=== PATIENT | female | born 2000 | race Caucasian/White ===

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

== ENCOUNTER 2022-02-24 11:31 | Emergency (ER) | payer BC, SELFPAY ==
[2022-02-24 11:56] VITALS: BP 123/67; PULSE 128; RESP 18; TEMP 37.3; O2SAT 100
--- NOTE | 2022-02-24 12:23 | ED.URI ---
HPI - URI/Sore Throat General Chief Complaint: Upper Respiratory Infection Stated Complaint: headache,sorethroat,nasal congestion Time Seen by Provider: 02/24/22 11:56 Source: patient, RN notes reviewed and old records reviewed Mode of arrival: ambulatory Limitations: no limitations History of Present Illness HPI Narrative: 21 year old female who presents to [facility] care with complaints of 10 day history of sore throat, sinus congestion and drainage, headache, sinus pressure and feeling like her glands are swollen in her neck. She reports that she has had intermittent fevers with her temperature 102.2F this morning and she took Advil prior to arrival, temperature at triage 99.2T. Patient reports that she does have a lot of phlegm in the morning and she has actually thrown up the mucous when she brushes her teeth. Home COVID test taken yesterday and was negative. MD elicited complaint: fever, cough, sore throat, rhinorrhea, nasal congestion and sinus pain Onset (ago): day(s) (10) Pain scale (0-10): 5 Treatments prior to arrival: ibuprofen and cold medicine Related Data Allergies Allergy/AdvReac Type Severity Reaction Status Date / Time No Known Allergies Allergy Verified 02/24/22 11:55 Review of Systems Review of Systems: CONSTITUTIONAL: Positive for fever, chills, or sweats. EYES: Denies visual changes, redness, or discharge. ENT: Positive for rhinorrhea, congestion, sore throat, no otalgia. CARDIOVASCULAR: Denies chest pain, palpitations, or edema. RESPIRATORY: Positive for cough denies dyspnea. GASTROINTESTINAL: Denies abdominal pain, nausea, positive for episodes of vomiting, no diarrhea. GENITOURINARY: Denies dysuria or hematuria. SKIN: Denies rash or itching. MUSCULOSKELETAL: Denies back pain, joint pain, or myalgia. NEUROLOGIC: Positive for headache, no numbness, or weakness. PSYCHIATRIC: Denies anxiety or depression. All systems reviewed & are unremarkable except as noted in HPI and below PMFSH Past Medical History Medical History (Updated 02/26/22 @ 20:48 by Antonina Chung NP) No significant past medical history Surgical History Surgical History (Updated 02/26/22 @ 20:51 by Antonina Chung NP) No history of previous surgery Social History Social History (Updated 09/02/22 @ 12:22 by Antonina Chung NP) Smoking status: Never smoker Alcohol intake: current Alcohol use details: social Substance use type: does not use Living arrangements: with family Gender identity (if verbalized by the patient): Female Comments At time of signature, agree with nursing past medical, surgical, social and family history. There is no relevant family history pertinent to the presenting complaint Exam Narrative: GENERAL: Ill-appearing, well-nourished, and in no acute distress. HEAD: Normocephalic, atraumatic. EYES: PERRLA and EOMI. ENT: Nares red with clear thick rhinorrhea no epistaxis. Mucous membranes moist.TM's with good light reflex, throat red with no lesions or exudate or tonsil swelling, post nasal drainage noted NECK: Supple.no lymphadenopathy CHEST: scattered wheezing on auscultation. No respiratory distress.SAO2 100% on r HEART: Regular rate and rhythm. No murmur heard. Normal peripheral pulses. ABDOMEN: Soft, nontender, nondistended, normal active bowel sounds. EXTREMITIES: Normal range of motion. No edema. SKIN: Warm, dry, no rash. NEURO: No focal deficits. Alert and oriented x3. Course Course Level of Care: Express Care Visit Vital Signs Vital signs: Vital Signs Temperature 37.3 C 02/24/22 11:56 Pulse Rate 128 H 02/24/22 11:56 Respiratory Rate 18 02/24/22 11:56 Blood Pressure 123/67 02/24/22 11:56 Pulse Oximetry 100 02/24/22 11:56 Oxygen Delivery Room Air 02/24/22 11:56 Temperature 37.3 C 02/24/22 11:56 Pulse Rate 115 H 02/24/22 12:43 Respiratory Rate 16 02/24/22 12:43 Blood Pressure 123/67 02/24/22 11:56 Pulse Oximetry 100 02/24/22 12:43 Oxyge
[2022-02-24 12:43] VITALS: PULSE 115; RESP 16; O2SAT 100
== END 2022-02-24 12:45 | disposition home or self-care (01) ==
PROVIDERS: Emergency Provider Registered Nurse; PCP Nurse Practitioner Family
DX: J32.9 Chronic sinusitis, unspecified (principal); J40 Bronchitis, not specified as acute or chronic
CPT/HCPCS: 87081; 87880; 99213; G0463

== ENCOUNTER 2022-09-21 14:27 | Outpatient (RCR) | payer BC, MEDICAID, SELFPAY ==
[2022-09-21 16:46] VITALS: BP 109/69; PULSE 112
== END 2022-11-24 17:44 | disposition home or self-care (01) ==
LOC: ANHOBOP 14:27
PROVIDERS: PCP Nurse Practitioner Family; Visit Provider Obstetrics & Gynecology
DX: O36.8130 Decreased fetal movements, third trimester, not applicable or unspecified (principal); Z3A.29 29 weeks gestation of pregnancy
CPT/HCPCS: 59025

== ENCOUNTER 2022-11-06 18:00 | Observation (INO) | payer BC, MEDICAID, SELFPAY ==
[2022-11-06] VITALS (62 sets, daily range): BP systolic 109–134; BP diastolic 65–96; PULSE 51–145; O2SAT 78–100
--- NOTE | 2022-11-06 15:30 | PC.NURSE ---
PT was sent from office for PIH evaluation. pt states she had headaches and blurred vision. EFM applied.
[2022-11-06 16:41] LABS: Basophils Percent Auto 0.2 % (0.2-1.2); Eosinophils Absolute Auto 0.1 K/mm3 (0-0.3); Eosinophils Percent Auto 0.8 % (0-4.4); Hematocrit 35.9 % (37.0-47.0); Hemoglobin 11.9 g/dL (12.0-15.0); Immature Granulocyte Absolute 0.05 K/mm3 (0.00-0.031); Immature Granulocyte Percent A 0.6 % (0-0.5); Immature Platelet Fraction Pct 17.5 % (0.9-11.2); Lymphocytes Absolute Auto 1.77 K/mm3 (0.9-3.2); Lymphocytes Percent Auto 19.6 % (18.3-44.2); Mean Corpuscular HGB Conc 33.1 g/dl (32-36); Mean Corpuscular Hemoglobin 28.1 pg (26-34); Mean Corpuscular Volume 84.7 fl (80-100); Mean Platelet Volume 12.8 fl (7.4-10.4); Monocytes Absolute Auto 0.6 K/mm3 (0.1-0.6); Monocytes Percent Auto 6.3 % (2.6-8.5); Neutrophils Absolute Auto 6.5 K/mm3 (1.3-6.7); Neutrophils Percent Auto 72.5 % (45.5-73.1); Platelet Count Result 135 k/mm3 (150-375); Red Blood Count 4.24 M/mm3 (4.2-5.4); Red Cell Distribution Width 16.4 % (11.5-14.5)
[2022-11-06 17:01] LABS: Alanine Aminotransferase 23 U/L (6-35); Albumin Level 3.5 g/dL (3.5-5.1); Alkaline Phosphatase 178 U/L (38-126); Anion Gap 7 mmol/L (8-16); Aspartate Amino Transferase 31 U/L (14-36); Bilirubin,Total 0.3 mg/dL (0.2-1.3); Blood Urea Nitrogen 8 mg/dL (7-17); Calcium 8.8 mg/dL (8.4-10.2); Carbon Dioxide 22 mmol/L (22-30); Chloride 105 mmol/L (98-107); Estimated Glomerular Filt Rate > 60; Glucose 76 mg/dL (65-110); Potassium 3.7 mmol/L (3.4-5.0); Sodium 134 mmol/L (137-145); Uric Acid 5.1 mg/dL (2.5-7.5)
[2022-11-06 17:27] LABS: Bacteria Urine 4+ /hpf; Need Manual Microscopic Reviewed; Non Pathogenic Casts 0-2; RBC Urine 0-2 /hpf (0-2); Squamous Epithelial Cell Urine Moderate /hpf (Few); WBC Urine 21-50 /hpf (0-3)
[2022-11-06 17:40] LABS: Appearance Urine Slightly Cloudy (Clear); Bilirubin Urine Negative (Negative); Blood Urine Negative (Negative); Color Urine Yellow (Yellow); Glucose Urine UA Negative (Negative); Ketones Urine Negative (Negative); Leukocyte Esterase Ur Negative LEU/UL (NEGATIVE); Nitrate Urine Negative (Negative); Protein Urine Negative (Negative); Specific Grav Ur 1.015 (1.001-1.035); Urobilinogen Urine 0.2 mg/dL (<2.0); pH Urine 7.5 (5.0-9.0)
[2022-11-06 17:41] LABS: Add Urine Microscopic? YES
--- NOTE | 2022-11-06 17:45 | PC.NURSE ---
called Dr. Campuzano and reported PIH lab result and BP. also made aware of contractions and SVE was finger tip. terbutaline order received. discharge to home if contractions subsided.
[2022-11-06] MEDS: TERBUTALINE SULFATE 1 MG/ML VIAL 0.25 MG SUB-Q ×2 (18:00→21:27)
[2022-11-06 18:58] LABS: Creatinine Urine 61.6 mg/dL; Total Protein Urine Random 16 mg/dL; Ur Ttl Prot Creatinine Ratio 0.26 mg/mg (0-0.20)
[2022-11-06] MEDS: NIFEdipine 10 MG CAPSULE PO (19:27)
[2022-11-06] MEDS: NIFEdipine 30 MG TAB.ER.24 PO ×2 (19:27→21:27)
[2022-11-06] MEDS: BETAMETHASONE SOD PHOS/ACETATE 30 MG/5 ML VIAL 12 MG IM (21:27)
--- NOTE | 2022-11-06 22:20 | OBADM ---
This patient, Zaina Oswald, admitted to the OB room OB Post 117 for observation. Patient/family oriented to hospital policies and general routines including ID bracelet, bed and alarms, visiting hours, pain management, procedures, bathroom and other care routines, personal items, smoking policy, room service/diet, and visiting hours. Patient/Family are encouraged to report perceived risks to care and to ask questions if they do not understand what they are told or what they should do.
--- NOTE | 2022-12-03 18:18 | P.PNOB_ITS ---
OB - Triage/Final Diagnosis Visit Information Comments/Additional reasons for admission: I have assessed the risk for this patient, Zaina Oswald, and determined that she would benefit from observation care. Evaluation Laboratory results: Laboratory Tests 11/06/22 16:28 WBC 9.0 RBC 4.24 Hgb 11.9 L Hct 35.9 L MCV 84.7 MCH 28.1 MCHC 33.1 RDW 16.4 H Plt Count 135 L MPV 12.8 H Immature Gran % (Auto) 0.6 H Neut % (Auto) 72.5 Lymph % (Auto) 19.6 [place] % (Auto) 6.3 Eos % (Auto) 0.8 Baso % (Auto) 0.2 Lymph # (Auto) 1.77 [place] # (Auto) 0.6 Eos # (Auto) 0.1 Baso # (Auto) 0.0 Abs Immat Gran (auto) 0.05 H Absolute Neuts (auto) 6.5 Absolute Nucleated RBC 0.0 Nucleated RBC % 0.0 % Immature Plt Fraction 17.5 H Sodium 134 L Potassium 3.7 Chloride 105 Carbon Dioxide 22 Anion Gap 7 L BUN 8 Creatinine 0.50 L Estim Creat Clear Calc Not Reportable Estimated GFR > 60 Glucose 76 Uric Acid 5.1 Calcium 8.8 Total Bilirubin 0.3 AST 31 ALT 23 Alkaline Phosphatase 178 H Total Protein 6.0 L Albumin 3.5 Urine Color Yellow Urine Appearance Slightly cloudy Urine pH 7.5 Ur Specific [place] 1.015 Urine Protein Negative Urine Glucose (UA) Negative Urine Ketones Negative Ur Blood (Man) Negative Urine Nitrate Negative Urine Bilirubin Negative Urine Urobilinogen 0.2 Ur Leukocyte Esterase Negative Add Ur Microanalysis Reviewed Urine RBC 0-2 Urine WBC 21-50 Ur Squamous Epith Cells Moderate Urine Bacteria 4+ H Urine Casts 0-2 U Random Total Protein 16 Urine Creatinine 61.6 Protein/Creat Ratio 2 0.26 H Final Diagnosis (1) PIH ( induced hypertension): Code(s): O13.9 - Gestational [-induced] hypertension without significant proteinuria, unspecified trimester Status: Acute
== END 2022-11-06 22:53 | disposition home or self-care (01) ==
LOC: ANHOBOP 22:01 → ANHOBPP 22:01
PROVIDERS: Admitting Provider Obstetrics & Gynecology; PCP Nurse Practitioner Family; Visit Provider Obstetrics & Gynecology
DX: O13.3 Gestational [pregnancy-induced] hypertension without significant proteinuria, third trimester (principal); Z3A.36 36 weeks gestation of pregnancy
CPT/HCPCS: 36415; 80053; 81001; 82570; 84156; 84550; 85025; 85055; 87086; 96372; A9270; G0378; G0379; J0702; J3105

== ENCOUNTER 2022-11-07 21:14 | Outpatient (CLI) | payer BC, MEDICAID, SELFPAY ==
[2022-11-07] MEDS: BETAMETHASONE SOD PHOS/ACETATE 30 MG/5 ML VIAL 12 MG IM (21:27)
== END 2022-11-07 21:29 | disposition home or self-care (01) ==
LOC: ANHOBOP 21:22
PROVIDERS: PCP Nurse Practitioner Family; Visit Provider Obstetrics & Gynecology
DX: O32.1XX0 Maternal care for breech presentation, not applicable or unspecified (principal); Z3A.00 Weeks of gestation of pregnancy not specified
CPT/HCPCS: 96372; J0702

== ENCOUNTER 2022-11-08 06:56 | Inpatient (IN) | payer BC, MEDICAID, SELFPAY ==
[2022-11-08] VITALS (57 sets, daily range): BP systolic 100–147; BP diastolic 63–93; PULSE 59–129; RESP 13–23; TEMP 36.4–37.2; O2SAT 90–100; BMI 33.7
--- NOTE | 2022-11-08 08:15 | PM.IMHP ---
H&P: HPI History of Present Illness Date/Time: 11/08/22 08:15 Chief Complaint: watery vaginal discharge Narrative: this patient is a 22-year-old 1 at term who presents with ruptured membranes. She has a twin gestation. She is 36 weeks gestation and 3 days /4 days. She has some painful contractions. She is rossy intermittently. She denies any nausea, vomiting, fever, chills. She denies any chest pain shortness of breath. We are going to proceed with delivery. She understands that injuries may occur during surgery that resulted in hospitalization, more surgery, severe illness. She understands risk of hemorrhage and infection. There is reassuring status for both twins. Review of Systems Review of Systems: All systems reviewed & are unremarkable except as noted in HPI and below Constitutional: Constitutional: Denies chills, Denies fatigue, Denies fever(s) and Denies weakness Eyes: Eyes: Denies blurry vision, Denies change in vision, Denies loss of peripheral vision, Denies loss of vision, Denies other visual disturbances and Denies eye pain ENT: Denies vertigo, Denies dizziness, Denies hearing loss, Denies mouth pain, Denies nasal obstruction, Denies neck mass and Denies neck pain Cardiovascular: Cardiovascular: Denies chest pain, Denies diaphoresis, Denies syncope, Denies leg edema and Denies dyspnea Respiratory: Respiratory: Denies chest congestion, Denies cough, Denies hemoptysis, Denies dyspnea and Denies wheezing Gastrointestinal: Gastrointestinal: Denies abdominal pain, Denies constipation, Denies diarrhea, Denies nausea and Denies vomiting Genitourinary: Genitourinary: Denies hematuria, Denies change in libido, Denies nocturia, Denies genital lesions, Denies flank pain and Denies urinary urgency Musculoskeletal: Musculoskeletal: Denies abnormal gait, Denies back pain, Denies myalgias, Denies arthralgias, Denies joint swelling, Denies muscle weakness and Denies neck pain Integumentary/Breasts: Skin/Breast: Denies swelling, Denies breast pain, Denies breast mass, Denies dry skin, Denies nipple discharge, Denies unusual bruising and Denies jaundice Neurologic: Denies Neuro-related abnormal movements, Denies Abnormal speech present, Denies abnormal gait, Denies behavioral changes, Denies confusion, Denies vertigo, Denies dizziness, Denies syncope, Denies loss of vision, Denies memory loss, Denies convulsions and Denies weakness Psychiatric: Psychiatric: Denies abnormal sleep pattern, Denies behavioral changes, Denies change in libido, Denies confusion, Denies depression, Denies anhedonia and Denies memory loss Endocrine: Endocrine: Reports no additional endocrine complaints, Denies change in libido and Denies fatigue Hematologic/Lymphatic: Hematologic/Lymphatic: Reports no additional hematologic/lymphatic complaints Allergic/Immunologic: Allergic/Immunologic: Reports no additional allergic/immunologic complaints and Denies wheezing PMFSH Past Medical History Medical History (Updated 11/08/22 @ 08:17 by Guido Campuzano MD) No significant past medical history Surgical History Surgical History (Updated 02/26/22 @ 20:51 by Antonina Chung NP) No history of previous surgery Social History Social History (Updated 02/24/22 @ 12:22 by Antonina Chung NP) Smoking status: Never smoker Alcohol intake: current Alcohol use details: social Substance use type: does not use Living arrangements: with family Gender identity (if verbalized by the patient): Female Meds Home Medications and Allergies Home Medications Medication Instructions Recorded Confirmed Type albuterol sulfate 90 mcg/actuation 1 puff inhalation QID PRN 02/24/22 Rx aerosol inhaler shortness of breath or wheezing #6.7 grams nifedipine 60 mg tablet,extended 60 mg PO DAILY 30 days #30 tabs 11/06/22 Rx release 24 hr (Procardia XL) Allergies Allergy/AdvReac Type Severity Reaction Status D
[2022-11-08] MEDS: AMPICILLIN 2 GM/NS 100 ML 2 GM/100 ML BAG IVPB (08:17)
[2022-11-08] MEDS: LACTATED RINGERS 1,000 ML 125 ML IV CONT ×3 (08:18→11:31)
--- NOTE | 2022-11-08 08:19 | WPDHPUPDATE1 ---
History and Physical Update Update Date/Time: 11/08/22 08:19 History and Physical has been reviewed, including an updated exam of the patient. There are NO changes in the patient's condition. Risks, benefits, and alternatives have been discussed and questions answered. Patient agrees to proceed with procedure.
[2022-11-08 08:20] LABS: Basophils Percent Auto 0.2 % (0.2-1.2); Hematocrit 35.9 % (37.0-47.0); Hemoglobin 11.8 g/dL (12.0-15.0); Immature Granulocyte Absolute 0.13 K/mm3 (0.00-0.031); Immature Platelet Fraction Pct 17.2 % (0.9-11.2); Lymphocytes Absolute Auto 1.44 K/mm3 (0.9-3.2); Lymphocytes Percent Auto 11.1 % (18.3-44.2); Mean Corpuscular HGB Conc 32.9 g/dl (32-36); Mean Corpuscular Hemoglobin 28.3 pg (26-34); Mean Corpuscular Volume 86.1 fl (80-100); Monocytes Absolute Auto 0.6 K/mm3 (0.1-0.6); Monocytes Percent Auto 4.3 % (2.6-8.5); Neutrophils Absolute Auto 10.9 K/mm3 (1.3-6.7); Neutrophils Percent Auto 83.4 % (45.5-73.1); Platelet Count Result 140 k/mm3 (150-375); Red Blood Count 4.17 M/mm3 (4.2-5.4); Red Cell Distribution Width 16.8 % (11.5-14.5)
[2022-11-08] MEDS: AZITHROMYCIN 500 MG/NS 250 ML 500 MG/250 ML BAG 250 MG IVPB (09:00)
--- NOTE | 2022-11-08 09:30 | WPDANESEPPF ---
Anes - Initial Pre Proc Eval Procedure: Operation Date: 11/08/22 09:30 Proposed Procedures p Section - Guido Campuzano MD Date/Time: 11/08/22 09:30 Surgeon: Guido Campuzano MD Pre Op Diagnosis: leaking Patient Data Age: 22 Gender: F Height: 1.68 m Weight: 95 kg Last Vital Signs Pulse 129 H 11/08/22 09:30 BP 147/82 H 11/08/22 09:30 O2 Del Method Room Air 11/08/22 08:25 Allergies Allergy/AdvReac Type Severity Reaction Status Date / Time No Known Allergies Allergy Verified 02/24/22 11:55 Home Medications Medication Instructions Recorded Confirmed Type nifedipine 60 mg tablet,extended 60 mg PO DAILY 30 days #30 tabs 11/06/22 11/08/22 Rx release 24 hr (Procardia XL) aspirin 81 mg tablet 162 mg PO DAILY 11/08/22 11/08/22 History ferrous sulfate 325 mg (65 mg 325 mg PO DAILY 11/08/22 11/08/22 History iron) tablet folic acid 0.8 mg capsule 0.8 mg PO DAILY 11/08/22 11/08/22 History vit no.95-ferrous 1 tablet PO DAILY 11/08/22 11/08/22 History fumarate 28 mg-folic acid 800 mcg tablet () Laboratory Tests 11/08/22 08:10 WBC 13.0 H K/mm3 (4.5-10.0) RBC 4.17 L M/mm3 (4.2-5.4) Hgb 11.8 L g/dL (12.0-15.0) Hct 35.9 L % (37.0-47.0) MCV 86.1 fl (80-100) MCH 28.3 pg (26-34) MCHC 32.9 g/dl (32-36) RDW 16.8 H % (11.5-14.5) Plt Count 140 L k/mm3 (150-375) MPV 13.0 H fl (7.4-10.4) Immature Gran % (Auto) 1.0 H % (0-0.5) Neut % (Auto) 83.4 H % (45.5-73.1) Lymph % (Auto) 11.1 L % (18.3-44.2) [place] % (Auto) 4.3 % (2.6-8.5) Eos % (Auto) 0.0 % (0-4.4) Baso % (Auto) 0.2 % (0.2-1.2) Lymph # (Auto) 1.44 K/mm3 (0.9-3.2) [place] # (Auto) 0.6 K/mm3 (0.1-0.6) Eos # (Auto) 0.0 K/mm3 (0-0.3) Baso # (Auto) 0.0 K/mm3 (0.0-0.1) Abs Immat Gran (auto) 0.13 H K/mm3 (0.00-0.031) Absolute Neuts (auto) 10.9 H K/mm3 (1.3-6.7) Absolute Nucleated RBC 0.0 K/mm3 (0.0-0.012) Nucleated RBC % 0.0 % (0.0-0.2) % Immature Plt Fraction 17.2 H % (0.9-11.2) RPR Pending Blood Type B Positive Antibody Screen Negative Patient hx anesthesia problems: none Family hx anesthesia problems: none Results Review: All pre-operative results and documents have been reviewed as part of the pre-operative evaluation. [facility] Past Medical History Medical History (Updated 11/08/22 @ 08:17 by Guido Campuzano MD) No significant past medical history Surgical History Surgical History (Updated 02/26/22 @ 20:51 by Antonina Chung NP) No history of previous surgery Social History Social History (Updated 02/24/22 @ 12:22 by Antonina Chung NP) Smoking status: Never smoker Alcohol intake: current Alcohol use details: social Substance use: never Substance use type: does not use Lack of Transportation: No Lack of Food: Never True Current Housing: I Have Housing Concerned About Future Housing: No Difficulty Paying Gas/Electric Bills: No Difficulty Paying for Meds: No Currently Unemployed: No Education: High School Diploma/GED Difficulty w/ Childcare or Family Care: No Living arrangements: with family Gender identity (if verbalized by the patient): Female Spiritual care concerns: No Anes - Eval Final PreProcedure Day of Procedure 11/08/22 09:30 Patient weight: obese Heart: regular rate and rhythm Lungs: clear to auscultation and normal air movement Airway: Mallampati scale class II Neurological: alert and oriented Last oral intake: >/= 8 hours ASA classification: III Emergent: no Anesthetic plan: proceed Anesthesia type and monitoring: regional spinal Results Review: All pre-operative results and documents have been reviewed as part of the pre-operative evaluation. Informed Consent: The patient's anesthetic plan and its attendant risks and benefits were discussed with the patient/famil
[2022-11-08] MEDS: ceFAZolin 2 GM/D5W 50 ML 2 GM/50 ML BAG IVPB (10:29)
[2022-11-08 10:57] LABS: Rapid Plasma Reagin Non-Reactive (NonReactive)
[2022-11-08] MEDS: KETOROLAC 30 MG/ML VIAL (*BKC) IV PUSH (11:12)
--- NOTE | 2022-11-08 11:30 | P.OP_ITS ---
Procedure Note - Detailed Date of Procedure 11/08/22 Pre-op Diagnosis leaking, 36 weeks gestation, twin gestation Post-op Diagnosis Same Procedure Performed Low-transverse section Surgeon Guido Campuzano MD Anesthesia Spinal Findings Normal gestational maternal anatomy, average size infant, normal Apgars. Description of Procedure The patient was taken the operating room. She was prepped and draped in dorsal supine position with a leftward tilt. This was done after spinal anesthetic was applied. A low-transverse skin incision was made and carried down till of the fascia with the knife. The fascial incision was made with the knife. The fascial incision was extended laterally with Hawkins scissors. The fascia was tented upward superiorly and inferiorly the rectus muscles were dissected off bluntly. The rectus muscles were the midline. The preperitoneal fat and peritoneum were dissected open bluntly at the superior aspect of the rectus muscles. The peritoneal incision was extended superior and inferior with good position of bladder. The uterine incision was made with a scalpel down to the level of the amniotic cavity. The amniotic cavity was entered bluntly. The A was delivered in the breech position. Infant B was delivered in the breech position.. The cord were clamped and cut and the infants were handed off to waiting pediatric staff. Cord bloods were obtained. The placenta was removed manually. The uterus was exteriorized. The uterus was cleared of all clots, debris and membranes. The uterus was closed in 0 Vicryl running lock fashion. An imbricating over a was placed along the incision line as well. The uterus was returned to the abdomen. The gutters were cleared of all clots and debris. The fascia was closed with 0 Vicryl running fashion. The subcutaneous tissue was irrigated pinpoint bleeders were cauterized. The skin was closed with subcuticular absorbable [place]. The skin incision line was covered with glue. The patient tolerated the procedure well. She has taken re covery room in stable condition. Sponge lap and needle counts were correct x2. Pathology Yes Complications No immediate complications Condition Stable Disposition PACU
--- NOTE | 2022-11-08 12:42 | PC.NURSE ---
heart tones found after spinal placement in OR. At 1038, Baby A 135. Baby B 140.
--- NOTE | 2022-11-08 13:07 | PC.NURSE ---
Addendum entered by Shannon Ro RN 11/08/22 15:43: Confirmed that the baby I worked with was indeed Baby A. Addendum entered by Shannon Ro RN 11/08/22 13:15: Assistance was with baby B Original Note: [id number] Introductions were made, then consulted with patient to assess needs related to after nursery RN called. Mother consented to assistance with Infant A. Infant latched effectively to the left breast supporting with the sandwich hold and bringing with a big, open, wide gape to the breast. Reviewed with mother how to visualize swallowing. Mother denies pain and after 15 minutes self detached and was placed [id number] upright on mothers chest. Once feeding cues were demonstrated by and reviewed with mother, then infant was brought to the right breast. Repeated attempts were made as mother's position after a C/S on a STR was awkward and demonstrated shallow latching with dimpling. After a couple of attempts, with assistance infant was able to latch deeply and maintain for 5-10 minutes using laid-back cross-cradle with breast support with the sandwich hold. Mother voiced understanding of information and will call if there is a request for assistance. Reported to the Primary nursery RN.
[2022-11-08] MEDS: OXYTOCIN 30 UNITS/NS 500 ML 30 UNITS/500 ML BAG 125 UNITS IV CONT (13:36)
--- NOTE | 2022-11-08 14:17 | OBPPTRN ---
Patient transferred to post room # 283 ia stretcher and moved to bed via maxi air without difficulty. Family present. Baby twin A accompanied mom to room. PT introductions made and plan of care discussed per post op c section, pain management, breast /bottle feeding, daily care activities and baby requiring blood sugars prior to feedings. PT oriented to unit, room, information board, rooming in, admission packet and security measures. PT received such instructions per one to one discussion, mom baby care guide and demonstrations. PT shows no barriers to learning at this time. Patient verbalizes understanding.
--- NOTE | 2022-11-08 17:45 | PC.NURSE ---
Explained to parents and family that infant blood sugar was still under the parameters for his age and gestation so he would be going to nursery downstairs for IV placement and to start on D10 Fluids till blood sugars stable/ PT verbalized understanding and pumping was initiated at this time.
[2022-11-09 01:00] VITALS: BP 99/52; PULSE 78; RESP 20; TEMP 37.2; O2SAT 98
[2022-11-09 05:25] VITALS: BP 102/66; PULSE 75; RESP 18; TEMP 36.9; O2SAT 96
[2022-11-09 05:39] LABS: Basophils Percent Auto 0.2 % (0.2-1.2); Eosinophils Percent Auto 0.1 % (0-4.4); Hemoglobin 9.2 g/dL (12.0-15.0); Immature Granulocyte Absolute 0.09 K/mm3 (0.00-0.031); Immature Granulocyte Percent A 0.8 % (0-0.5); Immature Platelet Fraction Pct 14.2 % (0.9-11.2); Lymphocytes Percent Auto 17.9 % (18.3-44.2); Mean Corpuscular HGB Conc 32.9 g/dl (32-36); Mean Corpuscular Hemoglobin 28.5 pg (26-34); Mean Corpuscular Volume 86.7 fl (80-100); Mean Platelet Volume 12.8 fl (7.4-10.4); Monocytes Absolute Auto 0.9 K/mm3 (0.1-0.6); Monocytes Percent Auto 7.5 % (2.6-8.5); Neutrophils Absolute Auto 8.6 K/mm3 (1.3-6.7); Neutrophils Percent Auto 73.5 % (45.5-73.1); Platelet Count Result 113 k/mm3 (150-375); Red Blood Count 3.23 M/mm3 (4.2-5.4); Red Cell Distribution Width 16.8 % (11.5-14.5); White Blood Count 11.7 K/mm3 (4.5-10.0)
--- NOTE | 2022-11-09 07:43 | P.PNOB_ITS ---
OB - PN: Subj Subjective Date/time seen: 11/09/22 07:43 primary section/breech twins flatus present regular diet pain well managed OB - PN: Obj Data Labs 11/09/22 05:17 Labs: Laboratory Results - last 24 hr 11/08/22 11/09/22 08:10 05:17 WBC 13.0 H 11.7 H RBC 4.17 L 3.23 L Hgb 11.8 L 9.2 L Hct 35.9 L 28.0 L MCV 86.1 86.7 MCH 28.3 28.5 MCHC 32.9 32.9 RDW 16.8 H 16.8 H Plt Count 140 L 113 L MPV 13.0 H 12.8 H Immature Gran % (Auto) 1.0 H 0.8 H Neut % (Auto) 83.4 H 73.5 H Lymph % (Auto) 11.1 L 17.9 L [place] % (Auto) 4.3 7.5 Eos % (Auto) 0.0 0.1 Baso % (Auto) 0.2 0.2 Lymph # (Auto) 1.44 2.10 [place] # (Auto) 0.6 0.9 H Eos # (Auto) 0.0 0.0 Baso # (Auto) 0.0 0.0 Abs Immat Gran (auto) 0.13 H 0.09 H Absolute Neuts (auto) 10.9 H 8.6 H Absolute Nucleated RBC 0.0 0.0 Nucleated RBC % 0.0 0.0 % Immature Plt Fraction 17.2 H 14.2 H RPR Non-reactive Blood Type B Positive Antibody Screen Negative OB - PN A/P Plan day: 1 Plan: routine care Time Spent With Patient Time: Total time spent is greater than 50% in coordination of care (as documented) at patient's floor/unit and/or counseling patient: Review of Systems Review of Systems: All systems reviewed & are unremarkable except as noted in HPI and below Exam Narrative: Incision CDI Const: General: cooperative and healthy appearing Chest: Chest palpation & inspection: normal inspection of the chest Resp: Effort & Inspection: normal respiratory effort Skin: General skin exam: normal color Neuro: General: patient oriented x3 Extrem: General: normal to inspection
[2022-11-09 08:10] VITALS: BP 107/65; PULSE 78; RESP 18; TEMP 37.5; O2SAT 97
[2022-11-09] MEDS: DOCUSATE SODIUM 100 MG CAPSULE PO ×2 (09:38→16:24)
[2022-11-09] MEDS: POLYSACCHARIDE IRON COMPLEX 150 MG CAPSULE PO ×2 (09:38→16:24)
[2022-11-09] MEDS: MULTIVIT/MIN/PREN/FOL AC/IRON TABLET 1 TAB PO (09:38)
[2022-11-09] MEDS: IBUPROFEN 600 MG TABLET PO ×2 (09:38→16:25)
--- NOTE | 2022-11-09 11:02 | WPDANLDNPN2 ---
Anes-Prog Note L&D-Neuraxial Date/Time: 11/09/22 11:02 Neuraxial medications: intrathecal PF morphine Opiod-related complaints: none Patient feedback: Patient satisfied with post-operative pain management.
--- NOTE | 2022-11-09 11:02 | WPDANESPN ---
Anes - Prog Note Post-Op Date/Time: 11/09/22 11:02 Cardiovascular status: normal Respiratory status: normal Airway patency: baseline Mental status: baseline Post-Op hydration status: normal Vital Signs: Last Vital Signs Temp 37.5 C 11/09/22 08:10 Pulse 78 11/09/22 08:10 Resp 18 11/09/22 08:10 BP 107/65 11/09/22 08:10 Pulse Ox 97 11/09/22 08:10 O2 Del Method Room Air 11/09/22 01:00 Pain Score (VAS): 2 I/O: Intake & Output 11/08/22 11/09/22 11/09/22 23:59 07:59 15:59 Intake Total 300 Output Total 138 1652 Balance -525 -1370 Laboratory Tests 11/09/22 05:17 11/09/22 05:17 WBC 11.7 H RBC 3.23 L Hgb 9.2 L Hct 28.0 L MCV 86.7 MCH 28.5 MCHC 32.9 RDW 16.8 H Plt Count 113 L MPV 12.8 H Immature Gran % (Auto) 0.8 H Neut % (Auto) 73.5 H Lymph % (Auto) 17.9 L [place] % (Auto) 7.5 Eos % (Auto) 0.1 Baso % (Auto) 0.2 Lymph # (Auto) 2.10 [place] # (Auto) 0.9 H Eos # (Auto) 0.0 Baso # (Auto) 0.0 Abs Immat Gran (auto) 0.09 H Absolute Neuts (auto) 8.6 H Absolute Nucleated RBC 0.0 Nucleated RBC % 0.0 % Immature Plt Fraction 14.2 H Post-procedural complaints: none Patient Feedback: Patient satisfied with anesthetic care.
[2022-11-09] MEDS: LORATADINE 10 MG TABLET PO (16:25)
[2022-11-09 18:57] VITALS: BP 117/79; PULSE 88; RESP 18; TEMP 36.9; O2SAT 97
[2022-11-10] MEDS: IBUPROFEN 600 MG TABLET PO ×2 (05:00→15:39)
[2022-11-10] MEDS: HYDROcodone/acetaminophen (*CRX) 5-325 MG TABLET 1 TAB PO ×2 (05:01→17:43)
--- NOTE | 2022-11-10 07:37 | PM.OBPNVD ---
OB - PN: Subj Subjective Date/time seen: 11/10/22 07:37 s/p section day 2 flatus present regular diet babies bottle fed/trouble with sugars, IV pain well managed OB - PN: Obj Data Labs 11/09/22 05:17 OB - PN A/P Plan day: 2 Plan: routine care Time Spent With Patient Time: Total time spent is greater than 50% in coordination of care (as documented) at patient's floor/unit and/or counseling patient: Review of Systems Review of Systems: All systems reviewed & are unremarkable except as noted in HPI and below Exam Const: General: cooperative and healthy appearing Chest: Chest palpation & inspection: normal inspection of the chest Resp: Effort & Inspection: normal respiratory effort Skin: General skin exam: normal color Extrem: General: normal to inspection Psych: Appearance: grossly normal
[2022-11-10 09:20] VITALS: BP 109/62; PULSE 72; RESP 18; TEMP 36.8; O2SAT 98
[2022-11-10] MEDS: MULTIVIT/MIN/PREN/FOL AC/IRON TABLET 1 TAB PO (09:33)
[2022-11-10] MEDS: DOCUSATE SODIUM 100 MG CAPSULE PO ×2 (09:34→15:39)
[2022-11-10] MEDS: POLYSACCHARIDE IRON COMPLEX 150 MG CAPSULE PO ×2 (09:34→15:39)
[2022-11-10] MEDS: ACETAMINOPHEN 325 MG TABLET 650 MG PO (09:35)
--- NOTE | 2022-11-10 16:18 | PM.OBDSVD ---
DS: Admitting Diagnosis Discharge Date 11/10/22 Admitting Diagnosis BREECH, TWINS srom DS: Discharge Diagnosis Discharge Diagnosis (1) Post-op pain: Code(s): G89.18 - Other acute postprocedural pain Status: Acute OB - DS: Summary OB Procedures : None OB Procedures Intrapartum: OB Procedures: : None Peripartum Data Procedures: Procedures Operation Date: 11/08/22 09:30 Actual Procedure Side Surgeon p Section Bilateral Guido Campuzano MD Time Spent with Patient Time attestation: Total time spent providing and/or coordinating discharge services: DS: Data Data Completed and Pending Pending studies at discharge: Pending at discharge 11/08/22 12:30 Surgical [PTH] Routine Discharge Plan Discharge Attending physician on discharge: Shobha Joseph Discharging Clinician: Maria Fernanda Raman Patient Disposition: Home, Self-Care Activity: pelvic rest Diet: regular Patient Instructions: Antibiotic Form Stand Alone Forms: General Discharge Information Follow-up/Referrals: Guido Campuzano MD [Physician] - 1 Week Discharge Medications: New hydrocodone-acetaminophen 5-325 mg Tablet 1 tablet PO Q3H PRN (Reason: Moderate Pain (4-6)) 7 Days Qty: 1 0RF ibuprofen 600 mg Tablet 600 mg PO Q6H PRN (Reason: Cramping) Qty: 30 0RF Continued ferrous sulfate 325 mg (65 mg iron) Tablet 325 mg PO DAILY PNV cmb#95-ferrous fumarate-FA [] 28 mg iron- 800 mcg Tablet 1 tablet PO DAILY Discontinued aspirin 81 mg Tablet 162 mg PO DAILY folic acid 0.8 mg Capsule 0.8 mg PO DAILY nifedipine [Procardia XL] 60 mg Tablet Extended Release 24hr 60 mg PO DAILY 30 Days Qty: 30 0RF Date of admission: 11/08/22 06:56 Primary Care Provider: Zelda,Sandi Nickerson Admitting Provider: Guido Campuzano Attending physician on admission: Guido Campuzano Condition: Stable
[2022-11-10] MEDS: LORATADINE 10 MG TABLET PO (17:43)
== END 2022-11-10 18:20 | disposition home or self-care (01) | DRG 788 ==
LOC: ANHLDR 07:37 → ANHOB2 14:22
PROVIDERS: Admitting Provider Obstetrics & Gynecology; PCP Nurse Practitioner Family; Visit Provider Obstetrics & Gynecology
PROC: 10D00Z1 Extraction of Products of Conception, Low, Open Approach (ICD-10-PCS; CPT 59514; principal; 2022-11-08 09:30)
DX: O60.14X1 Preterm labor third trimester with preterm delivery third trimester, fetus 1 (principal); Z37.2 Twins, both liveborn; Z3A.36 36 weeks gestation of pregnancy; O60.14X2 Preterm labor third trimester with preterm delivery third trimester, fetus 2; O32.1XX0 Maternal care for breech presentation, not applicable or unspecified; O30.043 Twin pregnancy, dichorionic/diamniotic, third trimester
CPT/HCPCS: 36415; 84112; 85025; 85055; 86592; 86850; 86900; 86901; 88307; A9270; J0131; J0290; J0456; J0690; J1100; J1885; J2274; J2370; J2405; J2590; J7120

== ENCOUNTER 2025-03-30 09:12 | Emergency (ER) | payer BC, MEDICAID, SELFPAY ==
--- NOTE | 2025-03-30 09:19 | ED.EYEPROB ---
HPI - Eye Problem General Chief complaint: Eye Problems Stated complaint: LT Eye Problem Time Seen by Provider: 03/30/25 09:35 Source: patient Mode of arrival: ambulatory Limitations: no limitations History of Present Illness HPI Narrative: Ashia is a 24-year-old female patient presenting to the clinic today with complaints of possible pinkeye to the left eye x1 day. She reports yesterday her eye started draining some green discharge. Has slight itching. Has been using some cazt-cyy-ggwpbfo allergy drops without relief. Works at a local [employer]. She does wear contacts. Denies any visual changes or URI symptoms. Related Data Home Medications ?Medication ?Instructions ?Recorded ?Confirmed ?Last Taken ?Type sertraline 50 mg tablet mg 03/30/25 Unknown History Allergies Allergy/AdvReac Type Severity Reaction Status Date / Time No Known Allergies Allergy Verified 03/30/25 09:42 Review of Systems Review of Systems: Pertinent positives per HPI. Patient denies any fever, chills, rash, headache, visual changes, dizziness, cough, shortness of breath, chest pain, palpitations, nausea, vomiting, diarrhea, constipation, abdominal pain, or any urinary issues. [facility] Past Medical History Medical History (Updated 03/30/25 @ 09:46 by Andrew Alarcon APRN) No significant past medical history Surgical History Surgical History No history of previous surgery Social History Social History (Updated 02/24/22 @ 12:22 by Antonina Chung NP) Smoking status: Never smoker Alcohol intake: current Alcohol use details: social Substance use: never Substance use type: does not use Lack of Transportation: No Lack of Food: Never True Current Housing: I Have Housing Concerned About Future Housing: No Difficulty Paying Gas/Electric Bills: No Difficulty Paying for Meds: No Currently Unemployed: No Education: High School Diploma/GED Difficulty w/ Childcare or Family Care: No Living arrangements: with family Gender identity (if verbalized by the patient): Female Spiritual care concerns: No Comments At the time of my signature, I reviewed and agree with the nursing past medical, surgical, social, and family history. There is no relevant family history pertinent to the patient complaint. Exam Narrative: General: Well-developed, well nourished, in no apparent distress Head: Normocephalic, atraumatic Eyes: Pupils equally round and reactive to light bilaterally, EOM intact, right sclera and conjunctive clear, no discharge, lids normal, left sclera and conjunctiva injected with green mucopurulent discharge, lids are normal Ears: TMs intact and clear, ear canals clear, no drainage, grossly hearing normal. Nose: Nares patent, no discharge, no inflammation, no sinus tenderness. Mouth: Oral pharynx without lesions or masses, good dentition, MMM. Neck: Supple, trachea midline, no enlargement of anterior or posterior cervical nodes, no thyroid masses or goiter palpable. Cardio: Regular rate and rhythm, s1 and s2 normal, no murmur appreciated. Resp: Clear to auscultation bilaterally, no rhonchi, rales, wheezing or rubs Course Course Emergency Course: Portions of this record may have been created with voice recognition software. Level of Care: Express Care Visit Vital Signs Vital signs: Vital Signs Temperature 36.6 C 03/30/25 09:21 Pulse Rate 71 03/30/25 09:21 Respiratory Rate 18 03/30/25 09:21 Blood Pressure 95/65 L 03/30/25 09:21 Pulse Oximetry 100 03/30/25 09:21 Oxygen Delivery Room Air 03/30/25 09:21 Temperature 36.6 C 03/30/25 09:21 Pulse Rate 71 03/30/25 09:21 Respiratory Rate 18 03/30/25 09:21 Blood Pressure 95/65 L 03/30/25 09:21 Pulse Oximetry 100 03/30/25 09:21 Oxygen Delivery Room Air 03/30/25 09:21 Vital signs reviewed MDM - Eye Problem MDM Narrative Medical decision making narrative: At the time of visit patient is resting comfortably on the exam table. Patient appears to be nontoxic. Complaints of possible pinkeye to the left eye x1 day. She reports yesterday her eye started draining some green discharge. Has slight itching. Has been using some ejtp-iin-qgwnoeg allergy drops without relief. 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 Denies any visual changes. Denies any URI symptoms On exam patient has left sclera and conjunctiva injected with green mucopurulent discharge. Plan: I suspect patient has left conjunctivitis. Prescription for ofloxacin eyedrops was sent to the pharmacy as patient does wear contacts. Work note was given for today. Supportive measures were discussed with the patient and they voiced understanding discharge instructions and agrees to treatment plan. Return precautions reviewed Differential Diagnosis Differential diagnosis: Likely corneal abrasion, conjunctivitis, acute iritis, hyphema, periorbital cellulitis, subconjunctival hemorrhage, glaucoma, corneal ulcer and ruptured globe Discharge Plan Discharge Clinical Impression: Acute conjunctivitis, left eye Qualifiers: Acute conjunctivitis type: bacterial Qualified Code(s): H10.32 - Unspecified acute conjunctivitis, left eye Patient Disposition: Home Condition: Stable Instructions: Antibiotic Form, Conjunctivitis (ED) Additional Instructions: Conjunctivitis is considered contagious for 24 hours while on the antibiotic. Practice good hand washing techniques Avoid touching eyes Instill eyedrops as prescribed-ofloxacin May use warm moist washcloth to help remove eye discharge If eyes are matted shut-do not pry eyes open-use a warm moist cloth to loosen matting and wipe matter away from eye May take Tylenol/Motrin as needed for pain or fever May take Benadryl as needed for itching Follow-up with your PCP in 3-5 days if symptoms persist or sooner if they worsen Go to the emergency room if you develop any fever that is not controlled by Tylenol or Motrin, loss of vision, eye pain, increase eye swelling,visual changes, headache, confusion, lethargy, weakness, chest pain, or shortness of breath. Patient Language: [place] Prescriptions: New ofloxacin 0.3 % drops See Rx Instructions .ROUTE .COMPLEX 7 Days Qty: 10 0RF Rx Instructions: put 1-2 drps into affected eye(s) every 2-4 h x 2 days, then 1-2 drps 4 times/day days 3-7 No Action sertraline 50 mg tablet Follow-up/Referrals: PHYSICIAN,HOSE TUBING BACKER [Primary Care Provider, Internal Medicine] Stand Alone Forms: Work/School Release IP Time of Disposition: 09:46 Quality NIHSS Nursing Documentation ED NIHSS nursing documentation: reviewed/agree
[2025-03-30 09:21] VITALS: BP 95/65; PULSE 71; RESP 18; TEMP 36.6; O2SAT 100
--- OUTSIDE RECORDS SUMMARY | 2025-03-30 09:52 | XMS_ITS | Clinical Summary ---
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 Gender Identity Not on file Sexual Orientation Not on file Plan of Treatment Health Maintenance Due Date Last Done Comments Hepatitis C Virus (HCV) Screening 2001 Meningococcal B Immunization (1 of 2 - Standard) 2017 Influenza Immunization (#1) 2025 05/01/2012, 1 SARS-COV-2 Immunization ( season) 2025 Respiratory Syncytial Virus (RSV) Immunization (Adult) (1 - 1-dose 75+ series) 2076 Hepatitis B Immunization Completed 002, 2001, 2001 Measles Mumps Rubella (MMR) Immunization Discontinued 01/02/2007, 01/02/2003 Polio (IPV) Immunization Discontinued 007, 07/15/2002, 03/26/2002, Additional history exists Varicella Immunization Discontinued 01/02/2007, 2002 DTaP/Tdap/Td Immunization Discontinued 2013, 01/02/2007, 04/29/2003, Additional history exists TdaP Immunization Completed 01/27/2014 Human Papillomavirus (HPV) Immunization Completed 10/22/2014, 01/27/2014 Hepatitis A Immunization Discontinued 03/02/2017, 0810/2013 Meningococcal Immunization (ACWY) Completed 04/06/2020, 01/27/2014 Pneumococcal Immunization Combined Aged Out No longer eligible based on patient's age to complete this topic Rotavirus Immunization Aged Out No lo nger eligible based on patient's age to complete this topic
--- OUTSIDE RECORDS SUMMARY | 2025-03-30 09:52 | XMS_ITS | Clinical Summary ---
Author Organization [facility] Address [address] [place] [address] Care Team Providers Care Production Operations Engineer Name Role Phone No, Physician Primary Care Provider [phone] Allergies No known active allergies Medications cyclobenzaprine (FLEXERIL) 10 mg tablet Take 1 tablet (10 mg total) by mouth 3 (three) times a day as needed for muscle spasms for up to 20 doses 20 tablet 04/23/2024 Active lidocaine (LIDODERM) 5 %Indications:Pa in Place 1 patch on the skin daily Use patch for 12 hours on, 12 hours off. Discard after each use 7 patch 04/23/2024 Active Social History Tobacco Use Types Packs/Day Years Used Date Smoking Tobacco: Never Assessed Personal Safety Answer Date Recorded Have you ever been in or are you currently in a harmful physical or emotional relationship or is someone making you feel afraid or unsafe? 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 Gender Identity Female 04/23/2024 4:41 PM CDT Sexual Orientation Not on file Last Filed Vital Signs Vital Sign Reading Time Taken Comments Blood Pressure 127/88 04/23/2024 5:15 PM CDT Pulse 77 04/23/2024 5:15 PM CDT Temperature 36.9 C (98.4 F) 04/23/2024 11:57 AM CDT Respiratory Rate 16 04/23/2024 5:12 PM CDT Oxygen Saturation 100% 04/23/2024 5:15 PM CDT Inhaled Oxygen Concentration - - Weight 88.2 kg (194 lb 7.1 oz) 04/23/2024 11:57 AM CDT Height 167.6 cm (5' 6) 04/23/2024 11:57 AM CDT Body Mass Index 31.38 04/23/2024 11:57 AM CDT Plan of Treatment Health Maintenance Due Date Last Done Comments Cervical Cancer Screening 2001 Depression Screening 2001 Hepatitis C Screening 2001 Meningococcal B Vaccine (1 of 2 - Standard) 2017 Regular Well Visit/Exam 18-64 2019 DTaP/Tdap/Td Vaccine (7 - Td or Tdap) 01/28/2024 01/27/2014, 01/02/2007, 01/02/2007, Additional history exists Influenza Vaccine (#1) 2025 2, 05/01/2012, 05/01/2012, Additional history exists Hepatitis B Screening Completed 03/26/2002 , 03/26/2002, 2001, Additional history exists Varicella Vaccines Completed 01/02/2007, 0 01/02/2007, 01/02/2003 HPV Vaccines Completed 10/22/2014, 01/27/2014 Pneumococcal vaccine <65 Aged Out No longer eligible based on patient's age to complete this topic Insurance [facility] Care Teams Production Operations Engineer Relationship Specialty Start Date End Date No, Physician PCP - General 04/23/24
--- OUTSIDE RECORDS SUMMARY | 2025-03-30 09:52 | XMS_ITS | Data Portability ---
Author Organization [facility] [place] Address [address] [place] [address] Care Team Providers Care Microsoft Architect Name Role Phone TINY SKELTON Primary Care Provider Assessment Encounter Date Assessment Date Assessment LastModified by Organization Details LastModified Time 12/10/2023 12/10/2023 Annual gynecological exam performed. Patient will come back in a year unless there are new symptoms. [email or web address] Not available 12/10/2023 11:09:10 Plan of Treatment Reminders Order Date Submit Date Provider Last Modified By Organization Details Last Modified Time Details Appointments None recorded. Lab urinalysis, dipstick 2024 025 [email or web address] [place], [address], [place], [address], 11:43:25 culture, urine 2024 025 [facility] (Lab), [address], [place], [address], 5 08:34:44 unlisted lab - women's health swab plus, SHWETHA 2024 025 [facility] (Lab), [address], [place], [address], 5 08:34:44 urinalysis, dipstick 2024 025 [email or web address] [place], [address], [place], [address], 15:24:39 culture, urine 2024 025 [facility] (Lab), [address] [place], [address], 5 23:01:09 unlisted lab - women's health swab plus, SHWETHA 2024 025 [facility] (Lab), [address] [facility], [place], [address], 5 23:01:09 Referral None recorded. Procedures None recorded. Surgeries None recorded. Imaging None recorded. Medication Orders Macrobid 100 mg capsule [email or web address] [facility][id number], [address], [place], [id number], 5 11:41:41 metronidazo le 0.75 % (37.5 mg/5 gram) vaginal gel 2024 025 [facility] #13072, [address], [place], [id number], 5 09:43:58 nitrofurant oin monohydrate /macrocryst als 100 mg capsule 2024 025 [facility] #36758, [address], [place], [id number], 5 09:43:55 sertraline 50 mg tablet 2023 024 [facility] #07232, [address], [place], [id number], 4 12:29:34 sertraline 50 mg tablet 2023 024 [facility] #47035, [address], [place], [place], [id number], 4 16:29:08 sertraline 100 mg tablet 2023 024 [facility], [address], [place], [place], [id number], 4 11:11:27 Patient TargetsNo targets recorded. Patient InstructionsNo instructions recorded. Reason for Referral None Reported. Results Created Date Observation Date Name Description Value Unit Range Abnormal Flag Note LastModifiedBy Organization Detail LastModifiedTime 12/10/19 24 12/10/2023 IMAGE GUIDE D PAP, REFLE X HPV IF ASCUS ONLY image guided Pap, reflex HPV ASCUS only SEE RESULT S BELOW CASE REPOR T: Cytol ogy Gynec ologi amilcar Repor t Case: [id number] Autho pk pradhan Provi simi: Dana Ruiz, CHASE Colle cted: 12/09 1549 Order ing Locat ion: [place] [facility] Recei schuyler: 12/10 1120 First Scree n: Deborah Walker Speci men: Pranav rosa Pap - Image d, Cervi x STATE MENT OF ADEQU ACY: Satis facto ry for evalu ation Trans forma tion zone compo nent prese nt ----- ----- ----- ----- ----- ----- ----- ----- ----- ----- ----- ----- ----- ----- ----- ----- ----- ---- FINAL DIAGN OSIS: Negat maría for Intra epith jacquie cortez or Fatmata oro (NIL) . Elect rohan spann by Deborah Walker ica on 2023 at 8:19 AM ----- ----- ----- ----- ----- ----- ----- ----- ----- ----- ----- ----- ----- ----- ----- ----- ----- ---- COMME NT: This speci men was revie wed by a Cytot echno logis t and/o r Patho logis t (as indic ated in this repor t) after evalu ation using the Thinp rep Imagi ng Syste m. CLINI AMILCAR INFOR MATIO N: Menst rual Statu s: LMP (if appli cable ): Clini amilcar Histo ry/Pr eviou s Pap: Type of Neopl roz (if appli cable ): Signi fican t Clini amilcar Findi ngs: Other Histo ry: Hormo pavan (if appli cable ): PAP EDUCA PAMELA L NOTE: The Pap Test is a scree shelley test with an inher ent false negat maría rate. Liqui d-bas ed sampl ing may decre ase, but will not elimi indigo, false negat maría resul ts. A negat maría resul t does not precl ude the prese nce and/o r devel opmen t of disea se, since the prese nce of abnor mal cells in the sampl e depen ds on the locat ion of the lesio n and sampl ing techn ique. Varsha nued regul ar scree shelley is the best metho d of cance r preve ntion . If repor jorge cytol ogic findi ng do not corre late with physi amilcar and/o r histo rical findi ngs, furth er inves tigat ion is recom melisa d, as clini josep lucas nted. Not Available [facility] (Lab) [address], [place], [address], 12/13/2023 09:24:14 12/10/19 24 12/10/2023 TRICH OMONA S VAGIN NGA (RRNA ) trichomonas vaginalis ribosomal RNA (rrna) Negati ve negati ve Not Available [facility] (Lab) [address], [place], [address], 12/13/2023 09:24:15 12/10/19 24 12/10/2023 CT/GC (DEBI) , THINP REP VIAL chlamydia trachomatis, PCR Negati ve negati ve Not Available [facility] (Lab) [address] [facility], [place], [address], 12/13/2023 09:24:16 12/10/19 24 12/10/2023 CT/GC (DEBI) , THINP REP VIAL neisseria gonorrhoeae, PCR Negati ve negati ve Not Available [facility] (Lab) [address] [facility], [place], [address], 12/13/2023 09:24:16 07/17/19 25 07/17/2024 WOMEN 'S HEALT H SWAB PLUS, SHWETHA bacterial vaginosis (bv), tma Negati ve negati ve Not Available [facility] (Lab) [address] [facility], [place], [address], 07/19/2024 23:01:09 07/17/19 25 07/17/2024 WOMEN 'S HEALT H SWAB PLUS, SHWETHA alexandra species, tma Negati ve negati ve Not Available [facility] (Lab) [address] [facility], [place], [address], 07/19/2024 23:01:09 07/17/19 25 07/17/2024 WOMEN 'S HEALT H SWAB PLUS, SHWETHA alexandra glabrata, tma Negati ve negati ve Not Available [facility] (Lab) [address] [place], [address], 07/19/2024 23:01:09 07/17/19 25 07/17/2024 WOMEN 'S HEALT H SWAB PLUS, SHWETHA trichomonas vaginalis, tma Negati ve negati ve Not Available [facility] (Lab) [address] [place], [address], 07/19/2024 23:01:09 07/17/19 25 07/17/2024 WOMEN 'S HEALT H SWAB PLUS, SHWETHA chlamydia trachomatis, PCR Negati ve negati ve Not Available [facility] (Lab) [address] [facility], [place], [address], 07/19/2024 23:01:09 07/17/19 25 07/17/2024 WOMEN 'S HEALT H SWAB PLUS, SHWETHA neisseria gonorrhoeae, PCR Negati ve negati ve Bacte rial vagin osis detec ts the follo wing bacte massiel assoc iated with bacte rial vagin osis (BV): Lacto bacil darryl (L. gasse ri, L. crisp atus and L. jense ling), Gardn erell a vagin nga, and Atopo bium vagin ae. A singl e quali tativ e resul t is repor jorge base on instr ument softw are to deter mine BV posit maría or negat maría statu s. The Melissa da speci es group tests for C. albic ans, C. tropi calis , C. parap vern is, C. dubli niens is. Testi ng is perfo rmed using the Trans cript ion Media jorge Ampli ficat ion metho d. Tests for Melissa da glabr haile, Trich omona s vagin nga, Chlam ydia trach omati s, and Neiss eria gonor rhoea e are also inclu ded in this panel . Not Available [facility] (Lab) [address] [facility], [place], [address], 07/19/2024 23:01:09 07/17/19 25 07/17/2024 CULTU RE: URINE result report SEE RESULT S BELOW abnormal Test: Cultu re: Urine Speci men Sourc e: Urine - Clean Catch Speci men Type: Urine Speci men Date: 2024 1430 Resul t Date: 20246 Resul t Statu s: Final resul t Abnor mal: Yes Anh causey Lab: [facility] [address] [facility] [address] Tel: [phone] CULTU RE ----- ----- ----- --- >100, 000 CFU/m l Esche amy a coli (Abno rmal) SUSCE PTIBI LITY ----- ----- ----- --- Esche amy a coli METHO D HORTENSIA ----- ----- ----- ----- ----- ---- ----- ----- ----- ----- ----- AMPIC ILLIN >16 ug/mL Resis tant AMPIC ILLIN /SULB ACTAM >16 ug/mL Resis tant AZTRE ONAM <=4 ug/mL Susce ptibl e CEFAZ BEKAH 4 ug/mL Susce ptibl e CEFEP ALEXUS <=2 ug/mL Susce ptibl e CEFTA ZIDIM E <=1 ug/mL Susce ptibl e CEFTR IAXON E <=1 ug/mL Susce ptibl e CIPRO FLOXA JAMES <=0.2 5 ug/mL Susce ptibl e GENTA MICIN <=2 ug/mL Susce ptibl e LEVOF LOXAC IN <=0.5 ug/mL Susce ptibl e MEROP ENEM <=1 ug/mL Susce ptibl e NITRO FURAN TOIN <=32 ug/mL Susce ptibl e PIPER ACILL IN/TA ZOBAC ACKERMAN <=8 ug/mL Susce ptibl e TOBRA MYCIN <=2 ug/mL Susce ptibl e TRIME THOPR IM/REHMAN LFAME THOXA ZOLE <=0.5 ug/mL Susce ptibl e Not Available [facility] (Lab) [address], [place], [address], 07/19/2024 23:01:09 07/17/1907/17/2024 urina lysis , dipst ick Leukocytes + Not Available [facility] [address], [place], [address], 07/17/2024 15:13:34 07/17/1907/17/2024 urina lysis , dipst ick Nitrite - Not Available [place] [address], [place], [address], 07/17/2024 15:13:34 07/17/19 25 07/17/2024 urina lysis , dipst ick Urobilinogen - Not Available [facility] [address], [place], [address], 07/17/2024 15:13:34 07/17/19 25 07/17/2024 urina lysis , dipst ick Protein trace Not Available [place] [address], [place], [address], 07/17/2024 15:13:34 07/17/19 25 07/17/2024 urina lysis , dipst ick pH 5 Not Available [place] [address], [place], [address], 07/17/2024 15:13:34 07/17/19 25 07/17/2024 urina lysis , dipst ick Specific [place] 1.030 Not Available [facility] [address], [place], [address], 07/17/2024 15:13:34 07/17/19 25 07/17/2024 urina lysis , dipst ick Ketone - Not Available [place] [address], [place], [address], 07/17/2024 15:13:34 07/17/19 25 07/17/2024 urina lysis , dipst ick Bilirubin - Not Available [facility] [address], [place], [address], 07/17/2024 15:13:34 07/17/19 25 07/17/2024 urina lysis , dipst ick Glucose - Not Available [place] [address], [place], [address], 07/17/2024 15:13:34 07/17/19 25 07/17/2024 urina lysis , dipst ick Appearance cloudy Not Available [facility] [address], [place], [address], 07/17/2024 15:13:34 07/17/19 25 07/17/2024 urina lysis , dipst ick Color dark yellow Not Available [facility] [address], [place], [address], 07/17/2024 15:13:34 10/24/19 25 10/23/2024 CULTU RE: URINE result report SEE RESULT S BELOW Test: Cultu re: Urine Speci men Sourc e: Urine - Clean Catch Speci men Type: Urine Speci men Date: 1121 Resul t Date: 2211 Resul t Statu s: Final resul t Abnor mal: No Resul ting Lab: [facility] [address] [facility] [address] Tel: CULTU RE ----- ----- ----- --- Cultu re resul t (>=3 organ isms prese nt) indic ates possi ble conta minat ion. Repea t cultu re if sympt oms indic ate. Not Available [facility] (Lab) [address] [place], [address], 10/28/2024 08:34:43 10/24/19 25 10/23/2024 WOMEN 'S HEALT H SWAB PLUS, SHWETHA bacterial vaginosis (bv), tma Negati ve negati ve Not Available [facility] (Lab) [address] [place], [address], 10/28/2024 08:34:44 10/24/19 25 10/23/2024 WOMEN 'S HEALT H SWAB PLUS, SHWETHA alexandra species, tma Positi ve negati ve abnormal Not Available [facility] (Lab) [address] [facility], [place], [address], 10/28/2024 08:34:44 10/24/19 25 10/23/2024 WOMEN 'S HEALT H SWAB PLUS, SHWETHA alexandra glabrata, tma Negati ve negati ve Not Available [facility] (Lab) [address] [place], [address], 10/28/2024 08:34:44 10/24/19 25 10/23/2024 WOMEN 'S HEALT H SWAB PLUS, SHWETHA trichomonas vaginalis, tma Negati ve negati ve Not Available [facility] (Lab) [address] [facility], [place], [address], 10/28/2024 08:34:44 10/24/1910/23/2024 [facility], SHWETHA chlamydia trachomatis, PCR Negati ve negati ve Not Available [facility] (Lab) [address] [place], [address], 10/28/2024 08:34:44 10/24/1910/23/2024 [facility], SHWETHA neisseria gonorrhoeae, PCR Negati ve negati ve Bacte rial vagin osis detec ts the follo wing bacte massiel assoc iated with bacte rial vagin osis (BV): Lacto bacil darryl (L. gasse ri, L. crisp atus and L. jense ling), Gardn erell a vagin nga, and Atopo bium vagin ae. A singl e quali tativ e resul t is repor jorge base on instr ument softw are to deter mine BV posit maría or negat maría statu s. The [facility] speci es group tests for C. albic ans, C. tropi calis , C. parap vern is, C. dubli ni is. Testi ng is perfo rmed using the Trans cript ion Media jorge Ampli ficat ion metho d. Tests for Melissa da glabr haile, Trich omona s vagin nga, Chlam ydia trach omati s, and Neiss eria gonor rhoguillaume e are also inclu ded in this panel . Not Available [facility] (Lab) [address], [place], [address], 10/28/2024 08:34:44 10/24/19 25 10/23/2024 urina lysis , dipst ick Leukocytes ++ Not Available [facility] [address], [place], [address], 10/23/2024 11:41:55 10/24/19 25 10/23/2024 urina lysis , dipst ick Nitrite + Not Available [place] [address], [place], [address], 10/23/2024 11:41:55 10/24/19 25 10/23/2024 urina lysis , dipst ick Urobilinogen Normal Not Available [facility] [address], [place], [address], 10/23/2024 11:41:55 10/24/19 25 10/23/2024 urina lysis , dipst ick Protein Trace Not Available [place] [address], [place], [address], 10/23/2024 11:41:55 10/24/19 25 10/23/2024 urina lysis , dipst ick pH 9 Not Available [place] [address], [place], [address], 10/23/2024 11:41:55 10/24/19 25 10/23/2024 urina lysis , dipst ick Blood + Not Available [place] [address], [place], [address], 10/23/2024 11:41:55 10/24/19 25 10/23/2024 urina lysis , dipst ick Specific [place] 1.005 Not Available [facility], [place], [address], 10/23/2024 11:41:55 10/24/19 25 10/23/2024 urina lysis , dipst ick Ketone - Not Available [place] [address], [place], [address], 10/23/2024 11:41:55 10/24/19 25 10/23/2024 urina lysis , dipst ick Bilirubin - Not Available [facility] [address], [place], [address], 10/23/2024 11:41:55 10/24/19 25 10/23/2024 urina lysis , dipst ick Glucose Normal Not Available [place] [address], [place], [address], 10/23/2024 11:41:55 10/24/19 25 10/23/2024 urina lysis , dipst ick Appearance Cloudy Not Available [facility] [address], [place], [address], 10/23/2024 11:41:55 10/24/19 25 10/23/2024 urina lysis , dipst ick Color Dark Yellow Not Available [place] [address], [place], [address], 10/23/2024 11:41:55 10/29/19 25 10/28/2024 HEPAT ITIS B SURFA CE ANTIG EN hepatitis B surface antigen Non-re active non-re active This assay was perfo rmed using [employer] ratio n reage nts and test kits. Value s obtai adrian with other assay metho ds or kits canno t be used inter lee eably . Not Available [facility] (Lab) [address], [place], [address], 10/29/2024 14:59:41 05/06/20 25 10/28/2024 HIV 1/2 ANTIG EN/AN TIBOD Y, REFLE X CONFI RMATI ON HIV antigen/anti body Nonrea ctive nonrea ctive HIV-1 antig en and HIV-1 /HIV- 2 antib odies were not detec jorge. No labor atory evide nce of HIV infec tion. Not Available [facility] (Lab) [address] [place], [address], 10/29/2024 14:59:41 10/29/19 25 10/28/2024 HEPAT ITIS C ANTIB ADEEL SCREE N, REFLE X TO CONFI RMATI ON hepatitis C antibody Non-re active non-re active Antib odies to HCV Not Detec jorge, does not exclu de the possi bilit y of expos ure to HCV. Not Available [facility] (Lab) [address], [place], [address], 10/29/2024 14:59:42 10/29/19 25 10/28/2024 HEPAT ITIS B CORE, IGM hepatitis B core IgM antibody Non-re active non-re active Antib odies to Hepat itis B Core IgM not detec jorge. Does not exclu de the possi bilit y of expos ure to or infec tion with HBV. Corre late with other Hepat itis B serol ogies . Not Available [facility] (Lab) [address], [place], [address], 10/29/2024 14:59:42 10/29/1910/28/2024 RPR SCREE N, REFLE X TITER /CONF IRMAT ION RPR qualitative Nonrea ctive nonrea ctive Not Available [facility] (Lab) [address] [place], [address], 10/29/2024 14:59:42 Result Notes None recorded. Problems Name Problem SNOMED Code Status Onset Date Resolution Date Notes Provider Name and Address Organization Details Recorded Time Dichorio liliam diamniot ic twin pregnanc y [id number] Completed MFM 07/26/22. ASA QD, serial growth, 1x/wk testing @ 36wks Nixon Lopez [facility] 3 15:24:25 Pregnanc y [id number] Completed 202112/08/2022 Nixon michele, [facility] 3 15:24:30 Problem Notes None recorded. Procedures Surgical History Date Name Laterality Status Provider Name and Address Organization Details Recorded Time 12/10/19 24 Date of Last Pap Smear completed Suyapa Ramirez [facility] 10/23/2024 09:44:29 06/11/20 23 IUD Insertion completed KIAH Herrera [address], [place], [address], [facility] 06/11/2023 16:50:45 11/09/19 23 SECTION (SURG) completed Gabi Sivla [facility] 11/09/2022 10:31:45 06/25/19 10 Tonsillectomy completed Monica Aponte [facility] 04/26/2022 12:24:34 Imaging Results None recorded. Procedure Notes None recorded. Medical Equipment None Reported. Allergies No known drug allergies Medications Name Sig Start Date Stop Date Status Note LastModified by Organization Details LastModified Time cyclobenz aprine 10 mg tablet 07/17 completed Not Available Not Available Not Available Mirena 21 mcg/24 hr (up to 8 years) 52 mg intrauter ine device Take 1 device by intraute rine route. 2022 active 06/11/20 23 patient is here for mirena IUD insert (supplie d by office) lot [id number] Exp May 2025 and needs removed by 06/11/20 31 Not Available Not Available Not Available fluconazo le 150 mg tablet TAKE 1 TABLET BY MOUTH NOW. REPEAT IN 7 DAYS NEEDED active Not Available Not Available No t Available hydrocodo ne 5 mg-acetam inophen 325 mg tablet TAKE 1 TABLET BY MOUTH EVERY 3 HOURS NEEDED. 01/03 completed Not Available Not Available Not Available metronida zole 0.75 % (37.5 mg/5 gram) vaginal gel INSERT 1 APPLICAT ORFUL VAGINALL Y EVERY DAY AT BEDTIME FOR 5 DAYS 10/23 completed Not Available Not Available Not Available prednison e 20 mg tablet TAKE 1 TABLET BY MOUTH TWICE DAILY FOR 5 DAYS 04/26 completed Not Available Not Available Not Available sertralin e 100 mg tablet TAKE 1 TABLET BY MOUTH EVERY DAY 12/09 completed Not Available Not Available Not Available ciproflox acin 500 mg tablet TAKE 1 TABLET BY MOUTH EVERY DAY FOR 7 DAYS 06/11 completed Not Available Not Available Not Available sulfameth oxazole 800 mg-trimet hoprim 160 mg tablet TAKE 1 TABLET BY MOUTH EVERY 12 HOURS FOR 7 DAYS 06/11 completed Not Available Not Available Not Available triamcino lone acetonide 0.1 % topical cream APPLY TOPICALL Y TWICE DAILY TO THE INNER ARMS active Not Available Not Available No t Available nystatin- triamcino lone 100,000 unit/gram -0.1 % topical ointment APPLY TOPICALL Y TO THE AFFECTED AREA TWICE DAILY FOR 5 DAYS 06/11 completed Not Available Not Available Not Available nifedipin e ER 60 mg tablet,ex tended release 24 hr TAKE 1 TABLET BY MOUTH DAILY 01/03 completed Not Available Not Available Not Available benzonata te 100 mg capsule TAKE 1 CAPSULE BY MOUTH EVERY 8 HOURS NEEDED 07/17 completed Not Available Not Available Not Available nystatin- triamcino lone 100,000 unit/g-0. 1 % topical cream active Not Available Not Available Not Available ibuprofen 600 mg tablet TAKE 1 TABLET BY MOUTH EVERY 6 HOURS NEEDED FOR CRAMPING 01/03 completed Not Available Not Available Not Available methylpre dnisolone 4 mg tablets in a dose pack FOLLOW PACKAGE DIRECTIO NS 07/17 completed Not Available Not Available Not Available albuterol sulfate HFA 90 mcg/actua tion aerosol inhaler INHALE 2 PUFFS INTO THE LUNGS EVERY 4 HOURS NEEDED FOR WHEEZING OR SHORTNES S OF BREATH active Not Available Not Available No t Available sertralin e 50 mg tablet TAKE 1 TABLET BY MOUTH EVERY DAY 2024 active Not Available Not Available Not Avai lable amoxicill in 875 mg-potass ium clavulana te 125 mg tablet TAKE 1 TABLET BY MOUTH EVERY 12 HOURS 07/17 completed Not Available Not Available Not Available escitalop bebeto 10 mg tablet 04/26 completed Not Available Not Available Not Available nitrofura ntoin monohydra te/macroc rystals 100 mg capsule TAKE 1 CAPSULE BY MOUTH EVERY 12 HOURS FOR 7 DAYS active Not Available Not Available No t Available Estarylla 0.25 mg-0.035 mg tablet 06/28 completed Not Available Not Available Not Available 1 mg-20 mcg (24)/75 mg (4) tablet TAKE 1 TABLET BY MOUTH EVERY DAY 05/14 completed Not Available Not Available Not Available Vitals Date Recorded Body height Body mass index (BMI) Body weight Systolic And Diastolic Provider Name and Address Organization Details Last Updated DateTime 07/17/2024 162.56 cm 32 kg/m2 03048.9 g 117/74 mm[Hg] Adelaide Perez [facility] 07/17/2024 15:12:59 Date Recorded Body height Body mass index (BMI) Body weight Systolic And Diastolic Provider Name and Address Organization Details Last Updated DateTime 09/04/2023 162.56 cm 30.7 kg/m2 90127.03 g 118/75 mm[Hg] Monica Aponte [facility] 09/04/2023 17:18:30 Date Recorded Body height Body mass index (BMI) Body weight Systolic And Diastolic Provider Name and Address Organization Details Last Updated DateTime 10/23/2024 162.56 cm 29.8 kg/m2 94125.92 g 109/72 mm[Hg] Suyapa Ramirez [facility] 10/23/2024 09:43:32 Date Recorded Body height Body mass index (BMI) Body weight Systolic And Diastolic Provider Name and Address Organization Details Last Updated DateTime 10/29/2023 162.56 cm 30.6 kg/m2 32270.44 g 114/79 mm[Hg] Monica Aponte [facility] 10/29/2023 16:18:59 Date Recorded Body height Body mass index (BMI) Body weight Systolic And Diastolic Provider Name and Address Organization Details Last Updated DateTime 12/10/2023 162.56 cm 30.6 kg/m2 32268.44 g 106/73 mm[Hg] Nancy Clark [facility] 12/10/2023 11:10:42 Social History Question Answer Notes LastModified by Organizat ion Details LastModified Time Tobacco Smoking Status Former Smoker Dorothy Cotto ryne, [facility] 10/23/2022 15:20:33 If You Are , What Was Your Level Of Alcohol Consumption Prior To ? Occasional Information not available 10/23/2022 Are You Blind Or Do You Have Difficulty Seeing? No [email or web address] Information not available 04/26/2022 What Is Your Level Of Caffeine Consumption? Moderate [email or web address] Information not available 04/26/2022 How Much Tobacco Do You Chew? None Information not available 10/23/2022 In The 14 Days Before Symptom Onset, Have You Had Close Contact With A Laboratory-confir med COVID-19 While That Case Was Ill? No [email or web address] Information not available 04/26/2022 In The 14 Days Before Symptom Onset, Have You Had Close Contact With A Person Who Is Under Investigation For COVID-19 While That Person Was Ill? No [email or web address] Information not available 04/26/2022 Have You Been To An Area Known To Be High Risk For COVID-19? No Information not available 04/26/2022 Are You Deaf Or Do You Have Serious Difficulty Hearing? No [email or web address] Information not available 04/26/2022 What Type Of Diet Are You Following? REGULAR [email or web address] Information not available 04/26/2022 What Is The Highest Grade Or Level Of School You Have Completed Or The Highest Degree You Have Received? [id number] Information not available 10/23/2022 Do You Use Your Seat Belt Or Car Seat Routinely? Yes [email or web address] Information not available 04/26/2022 Do You Have Smoke And Carbon Monoxide Detectors In Your Home? Yes [email or web address] Information not available 04/26/2022 How Much Tobacco Do You Smoke? No Information not available 10/23/2022 Do You Use Sunscreen Routinely? Yes [email or web address] Information not available 04/26/2022 Has Tobacco Cessation Counseling Been Provided? No Information not available 10/23/2022 Have You Used IV Drugs? No Information not available 10/23/2022 Do You Have Difficulty Walking Or Climbing Stairs? No Information not available 10/23/2022 Sex: Female Functional Status Question Answer Note LastModified by Organizat ion Details LastModified Time Do you use any illicit or recreational drugs? No [email or web address] Information not available 04/26/2022 Do you or have you ever used any other forms of tobacco or nicotine? No Information not available 10/23/2022 What is your level of alcohol consumption? None [email or web address] Information not available 04/26/2022 Are you able to walk independently without assistance or assistive devices? YESWOREST [email or web address] Information not available 04/26/2022 Are you able to care for yourself independently? Yes Information not available 10/23/2022 Do you have difficulty dressing, bathing, grooming, or toileting? No Information not available 10/23/2022 What is your exercise level? Occasional [email or web address] Information not available 04/26/2022 Mental Status Question Answer Note LastModified by Organization D etails LastModified Time Do you feel stressed (tense, restless, nervous, or anxious, or unable to sleep at night)? [id number] [email or web address] Information not available 04/26/2022 Family History Relationship Description Onset Age of this Age Resolved Age Notes LastModified by Organization Details LastModified Time Paternal Grandmother Diabetes mellitus [email or web address] Not available 04/26 12:22:55 Maternal Grandmother Malignant neoplasm of breast [email or web address] Not available 04/26 12:23:03 Maternal Grandmother Malignant neoplasm of brain [email or web address] Not available 2024 09:26:31 Maternal Grandfather Hypertensive disorder [email or web address] Not available 04/26 12:23:27 Medical History Condition Response Allergies (Food, seasonal, environmental ) Y Other N Drug/Latex Allergies/Reactions N Breast Cancer N Blood Transfusion N Lung Disease N Dermatologic Disorders N Defects or Inherited Disease N Breast Problem N Gestational Diabetes N Hematologic disorders N Anesthesia Complications N History of STI N Deep Vein Thrombosis N Polycystic ovary syndrome N Anxiety Disorder Y Autoimmune disease N Arthritis N Polyps N Infertility N History of abnormal pap N Acid Reflux (GERD) N Cancer N Varicosities N Stroke N Neurologic/Epilepsy N Endometriosis N High Cholesterol N Headaches N Fibromyalgia N Kidney Disease N Heart Problems N Thyroid Problems N Kidney or Bladder Problems N GI Problems Y Eating Disorder N Anemia N Art (IVF or FET) N Psychiatric Illness N Ovarian Cancer N Diabetes N Pulmonary (TB, Asthma) N Hepatitis/Liver Disease N No Past Medical History N Eczema Y Urinary Tract Infection N Abuse/Domestic Violence N Asthma Y Trauma/Violence N Depression/ depression Y Heart Disease N Pre-Eclampsia N Hypertension N Osteoporosis N Thrombophilias N Gynecological History Statement/Question Response Date of Last Mammogram Flow Moderate Date of LMP 10/15/2024 Was last menstrual period normal Y STIs/STDs N Date of Last Colonoscopy Desired Control Method None Abnormal Pap N On BCP's at Conception? N HPV Vaccine Y Colposcopy Duration of Flow (days) 5 Current Control Method IUD Age at First Child 22 Are cycles usually normal Y Frequency of Cycle (Q days) 28 Most Recent Bone Density Sexually Active? Y Menses Monthly Y Date of DEXA bone scan Age of first menstrual cycle 12 Date of Last Pap Smear 12/10/2023 Sexual Problems? N LMP Definite Obstetrics History GPAL:G 1 P 0 0 0 2 Type Value Multiple Births 1 Living 2 Total 1 Past Encounters Encounter ID Performer Location Encounter Start Date Encounter Closed Date Diagnosis/Indication Diagnosis SNOMED-CT Code Diagnosis ICD10 Code Diagnosis IMO Codes Diagnosis Note [id number] Gee Campuzano MD [facility] [address] [address] 04/26/2022 11:34:24 04/26/2022 12:15:46 [id number] Maria Fernanda Raman CNM [facility] [address] [address] 04/26/2022 11:34:46 04/26/2022 14:55:35 test positive 429106965 Z32.01 Amenorrhea 26285008 N91. 2 Gynecologi c examination 91746386 Z01.419 [id number] MD Chely Yi [address],[place] [address] 05/24/2022 09:22:19 05/24/2022 15:57:46 Routine care 369901265 Z34.91 [id number] MD Chely Yi [address],[place] [address] 05/24/2022 09:22:48 05/24/2022 20:56:23 Uncertain viability of 087743682 O36.80X0 Z3A.12 [id number] MD Chely Yi [address],[place] [address] 06/28/2022 11:46:32 06/28/2022 14:54:54 Dichorionic diamniotic twin 448024513 O30.049 [id number] MD Kadi Yiville [address],[place] [address] 07/26/2022 12:47:43 07/26/2022 13:34:01 Dichorionic diamniotic twin 961280686 O30.049 [id number] MD Chely Yi [address],[place] [address] 08/23/2022 10:24:33 08/23/2022 14:47:04 Dichorionic diamniotic twin 818010887 O30.049 [id number] MD Chely Yi [address],[place] [address] 09/06/2022 11:23:41 09/06/2022 12:42:00 Dichorionic diamniotic twin [id number] O30.049 [id number] MD Chely Yi [address],[place] [address] 09/20/2022 10:29:39 09/22/2022 10:25:50 Dichorionic diamniotic twin 488969169 O30.049 [id number] Gee Campuzano MD [facility] [address],[place] [address] 10/09/2022 14:26:49 10/09/2022 15:19:49 Routine care 973413851 Z34.03 [id number] Gee Campuzano MD [facility] [address],[place] [address] 10/23/2022 15:02:16 10/24/2022 15:14:47 Routine care 117289837 Z34.03 [id number] Gee Campuzano MD [facility] [address],[place] [address] 11/06/2022 14:20:12 11/06/2022 15:08:41 Routine care 920745145 Z34.03 [id number] Gee Campuzano MD [facility] [address],[place] [address] 11/17/2022 12:27:17 11/17/2022 15:43:21 Postoperative care 631731651 Z48.89 This patient is a 22-year-ol d female presents for postop follow-up. She is 1 week postop from a delivery. Her incision is clean dry and intact. She is doing exceptiona lly well. She reports being pain-free 2nd day postop. Her babies are in the ICU with minor respirator y issues. She will follow-up in 3 weeks for routine care. [id number] Gee Campuzano MD [facility] [address],[place] [address] 12/14/2022 11:40:17 12/14/2022 12:17:41 state 26870940 Z39.2 this patient is 22-year-ol d female presents for follow-up. She bottle feeding, her baby is doing well, her mood is good. She is going to use a Mirena IUD. She will return for insertion. She has no bleeding. She has follow-up in 2 weeks for Mirena insertion. [id number] KIAH Herrera [facility] [address],[place] [address] 01/03/2023 11:08:29 01/03/2023 12:22:20 Contraception care management 812863009 Z30.9 Discussed all control options in great detail. Pt would like to start ocp. She is aware of the risks and benefits. She does not have any medical condition that is contraindi cated with the use of estrogen containing control. Pt will start her pills on the first sunday following the start of her period. She is aware it is not effective for control the first month. She is also aware of the importance of taking at the same time every day. Encouraged use of condoms as the pill does not protect against STD's. Will return in 3 months for med check. Consent was read and signed. Pt verbalized understand ing.rx sentreturn for WWE / med check in 3-4 months Screening procedure 20126 Z13.9 Vaginitis 01394327 N76.0 suspect yeastvagin itis / STI panel sentvulvar care guidelines discussedR x sent, R/B/A discussedn otify office if symptoms persist Time spent in visit is a total of 30 mins with at least 50% of visit consisting of counseling and review of plan of care. Venereal d isease screening 046064485 Z11.3 [id number] KIAH Herrera [facility] [address],[place] [address] 05/14/2023 09:31:32 05/14/2023 12:13:43 Abscess of vulva 80902923 N76.4 cx sent, HSV PCR sentvagini tis panel sentSTI testing declinedvu lvar care guidelines discussedr x sent, r/b/a reviewedRT C if symptoms persist past treatmentc all the office with next period for IUD insertion if desired Time spent in visit is a total of 30 mins with at least 50% of visit consisting of counseling and review of plan of care. Vaginitis 10001221 N76.0 [id number] KIAH Herrera [facility] [address],[place] [address] 06/11/2023 15:25:34 06/11/2023 17:11:08 Screening procedure Z13.9 Insertion of intrauterine contraceptive device 06178680 Z30.430 UPT (-), gc/ct/tric h testing sentShe has been counseled on all of the r/b/a of placement of an intrauteri ne device that include but are not limited to uterine perforatio n, injury to cervix, vagina, bladder, and bowel.Risk s of bleeding due to injury or increased irregular bleeding due to progestin effect of the device. Risks of infection would be increased within the first 21 days of placement with concomitan t cervicitis . She understand s that the device will need to be removed in this instance due to increased risk of Pelvic inflammato ry disease. Patient is aware she is at higher risk for STD and if contracted she could lose her fertility. Pt is aware that if occurs that she should contact office immediatel y to rule out ectopic which could be life threatenin g. IUD will also need to be removed and this could cause miscarriag e. Patient also informed that in the event her strings are absent or embedded at the time of removal she may need to have the IUD surgically removed. She was informed of the above and properly consented. IUD placed w/o complicati on. Patient should return to office after next period to check for string placement. Patient to expect irregular bleeding but should be seen in the ED if bleeding increases to soaking a pad an hour for at least 2 hours. She verbalized understand ing.RTC for string check in 4-6 weeks [id number] KIAH Herrera [facility] [address],[place] [address] 08/02/2023 15:34:53 08/02/2023 16:24:31 IUD check 815101271 Z30.431 Patient is here for 4-6wk IUD string check.(+) IUD strings noted on exam She denies complicati ons, pain, or unpleasant side effects. Happy with this control method. Wishes to continue. Anxiety 70676695 F41.9 Discussed management optionswou ld like to start sertraline rx sent, r/b/a reviewedco unseling encouraged precaution s discussed (if thoughts of harming self or others occur call 911/seek help immediatel y)med check in 4 weeks Time spent in visit is a total of 25 mins with at least 50% of visit consisting of counseling and review of plan of care. [id number] KIAH Herrera [facility] [address],[place] [address] 09/04/2023 17:10:41 09/04/2023 17:34:45 Anxiety 80423233 F41.9 Doing well, has seen some improvemen twould like to increase dose as feels like symptoms could still be better controlled rx sent - r/b/a reviewedco unseling encouraged JERALD [facility] Time spent in visit is a total of 20 mins with at least 50% of visit consisting of counseling and review of plan of care. [id number] Dana Ruiz CHASE [facility] [address],[place] [address] 10/29/2023 16:12:32 10/29/2023 17:04:00 Anxiety 08825429 F41.9 desires to go back to 50mg dailyrx sent, instructio ns given on decreasing dose from 100 to 50question s answeredco unseling encouraged precaution s reviewed (if ever thoughts of harming self or others call 911/ED immediatel y)pt [facility]ized [facility] Time spent in visit is a total of 20 mins with at least 50% of visit consisting of counseling and review of plan of care. [id number] Dana Ruiz CHASE [facility] [address],[place] [address] 12/10/2023 10:59:06 12/10/2023 12:44:05 Gynecologic examination 13957083 Z01.419 Z11.3 Z11.8 WWEBC - Mirena IUD, inserted 06/11/2023 pap updatedgc/ ct/trich testing added to papencoura ged annual exam with [facility] in 1 yr or sooner if needed It is strongly advised to have an annual flu shot and up can obtain at most pharmacies .Discussed with patient & provided with informatio n regarding HPV vaccine if applicable . Encourage safe sexual practices, to use condoms and limit partners if not already in a monogamous relationsh ip.Do monthly self breast exams. BRCA testing is now available for patients with strong genetic history of female cancer. If interested contact the office. Engage in regular exercise. Avoid tobacco and illicit drugs. This lifestyle behavior pattern will lead to less health conditions and longer life span. If BMI greater than 25 dietary consult advised. Patient received above instructio ns, and questions have been answered. If you have any questions please call or respond to this email. Patient was made aware of the patient portal and may obtain a paper copy of today's plan if desired. Anxiety 47813049 F41.9 Doing well at current doserefill s sentr/b/a reviewed, precaution s discussed Venereal d isease screening 578923431 Z11.3 [id number] Gee Campuzano MD [facility] [address] [address] 07/17/2024 15:01:49 07/17/2024 15:30:18 Vaginal discharge 072489343 N89.8 Discussed empirical treatment with metronidaz ole for suspected BV based on reported symptoms and physical exam findings.D iscussed vulvar care guidelines in addition to laundry/sk in irritants to avoid.Enrico mmended boric acid capsules - insert one capsule vaginally at H.S. after period, intercours e, and/or with symptoms.V aginitis panel sent to confirm infection. Urinary symptoms 3669887 08 R39.9 Patient presents with symptoms of UTI. Urine culture sent. Advised to drink clear fluids, Tylenol for pain and take prescribed medication s as instructed . Patient encouraged to follow up within 1 week if not improving. Venereal d isease screening 994789231 Z11.3 Pt requested STI testing.Di scussed the various types of STDs, related symptoms and the potential consequenc es (including effects on fertility) of STD infections . Reviewed ways to limit exposure and prevention techniques . [id number] KIAH Herrera [facility] [address] [address] 10/23/2024 09:25:42 10/23/2024 11:54:29 Urinary system finding 951092762 R39.9 8228094 Ua done, urine cx sentrx sent for macrobidin crease clear fluids, avoid bladder irritants Venereal d isease screening 930491118 Z11.3 12299 gc/ct/tric h testing sentvagini tis panel sentDiscus sed the various types of STIs, related symptoms and the potential consequenc es (including effects on fertility) of STI infections . Reviewed ways to limit exposure and prevention techniques . Intrauteri ne contraceptive device in situ 510932543 Z30.431 [id number] normal appearing IUD strings noted on examquesti ons answered, precaution s reviewed Time spent in visit is a total of 25 mins with at least 50% of visit consisting of counseling and review of plan of care. Health Concerns Section Related Observation LastModified by Organization Detai ls LastModified Time None Recorded Concern Status LastModified by Organization Details LastModified Time None Recorded Advance Directives Directive None Recorded Payers Insurance Date Sequence Insurance Name Policy Number Policy Panchal Covered Member ID Panchal Member ID Guarantor Name 10/23/2024 1 [place] [id number] Tao Oswald [id number] Zaina Oswald 10/23/2024 2 [place] [facility] Zaina Oswald [id number] Zaina Darek Notes Date Note Type Note Provider Name and Address Organization Details Recorded Time 09/04/19 24 text/ht ml 23yopresents for med checkstarted [facility]ertraline [facility] for anxietyhas seen some improvementless mood swings/anger, does however feel like she is still getting overwhelmed and anxious at timesdenies ever thoughts of harming self or othersno negative SEno issues sleeping/eating/drinkingtwin 10 month old boys - doing well, planning 1 yr bday partner KIAH Herrera [address], [place], [address], [facility] 09/04/2023 17:32:48 10/29/19 24 text/ht ml 23yopresents for med checkincreased sertraline to 100mg daily at LOVanxiety is improved, but has noticed increased fatigue/emotionless since increasing from 50 to 100mg. She felt better on the 50 and would like to go back to this dose.Denies ever thoughts of harming self or othersher twin boys are turning 1 this month KIAH Herrera [address], [place], [address], [facility] 10/29/2023 16:58:40 12/10/19 24 text/ht ml Annual GYNReported by PatientGenitourinary symptomsFor menstrual cycle, patient reportsnormal menses. For urinary symptoms, patient reportsno hematuriaandno incontinence. For vulva, patient reportsno genital lesion. For vagina, patient reportsnormal vaginal discharge.Breast symptomsFor breast, patient reportsno breast pain,no breast lump, andno nipple discharge.ContraceptionFor current contraception, patient reportssatisfied with current contraceptionandintrauterine device (iud).Endocrine symptomsFor sexual complaints, patient reportsno sexual complaints,no pain during intercourse, andnormal libido. For menopausal symptoms, patient reportsno menopausal symptomsandnormal vaginal lubrication.Psychological symptomsFor psychological symptoms, patient reportsno depression,no anxiety, andno pmdd.Preventative measuresFor preventive measures, patient reportsencourage self breast examination,encourage regular exercise,encourage no tobacco use, andencourage regular mammograms starting age 40.23yoWWEno pap hxBC - Mirena IUD, inserted 06/11/2023 - doing well and desires to continue this methoddoing well on sertraline, symptoms controlled, no issues. Desires to continuedenies ever thoughts of harming self or others KIAH Herrera [address], [place], [address], [facility] 12/10/2023 12:30:26 07/17/19 25 text/ht ml Patient here with c/o cramping pelvic pain after urination, vaginal odor, millard discharge x 1 dayAlso c/o urinary frequency, urgency, hesitancy.Denies itching, fever, back pain.Patient just ended her period.Requests STI testing d/t new partner. Adelaide michele, [facility] 07/17/2024 15:31:02 10/24/19 25 text/ht ml 24yopresents for evaluation of urinary frequency/urgency, dysuria, vaginal discharge, and STI testingsymptoms started 3 days agonew partner recently and would like STI testing neg flank painsneg n/v/fneg flu-like symptomsneg pelvic pain KIAH Herrera [address], [place], [address], [facility] 10/23/2024 11:47:50 OBGyn Episode Ob Episode Information Episode Created Date Number of Fetuses Patient Bloodtype Patient rh Status Prepregnancy Weight lbs Domestic Partner Domestic Partner Phone Father Name Maori Physiotherapist Status 05/24/20 22 2 B Positive 163 CLOSED Fetus Data First Name Last Name Admitted to NICU Weight (g) Sex Living Outcome Pediatric Complications Fetus ID Race Codes Race Delivery Type 2551.45 5 M true Prematur e 27793 Primary 2664.85 3 M true Prematur e 66728 Primary Problems Problem Notes MFM 08/28 230 u/s only MFM u/s only 09/25 230MFM Recommendations: Twins - 162mg ASA daily, serial growth u/s, iron supplement if indicated, 36 week testing once weekly. Pt to do testing with MFM, MFM aware. bg,rnpt scheduled [facility] 11/13 145P us and nst Problem Name Start Date End Date Resolution Snomed Code Not e Dichorionic diamniotic twin [id number] [facility] 07/26/22. A SA QD, serial growth, 1x/wk testing @ 36wks Margarito Calculation Initial Margarito Date Initial Exam Date Initial Exam Provider Initial Ultrasound Date Last Menstrual Period Date Ultra Sound Weeks Gestation 12/03/2022 05/24/2022 04/26/2022 02/26/2022 8 Eighteen To Twenty Week Margarito Update Ultra Sound Date Fundal Height At Umbil Quickening Date Ultra Sound Latest Weeks Gestation Final Margarito Confirmed By Final Margarito Confirmed Date Final Margarito Date Ultra Sound Latest Days Gestation 0 [email or web address] 05/24/2022 12/04/19 23 0 Pre- Flowsheet Flowsheet Date 05/24/2022 Zuniga Score Blood Edema Fundus Height Fundus Units Glucose Ketones Leukocytes Nitrite Labor Signs Protein Cervic Dilation Cervic Effacement Cervic Station Type Weight in lbs Pre/Post Dialysis Refused BP Diastolic BP Location Tested BP Systolic BP Type Fetus Heart Rate Present Fetus Movement Comments Flowsheet Date 05/24/2022 Zuniga Score Blood Edema Fundus Height Fundus Units Glucose Ketones Leukocytes Nitrite Labor Signs Protein Cervic Dilation Cervic Effacement Cervic Station neg none none trace Type Weight in lbs Pre/Post Dialysis Refused Weight 166.495585391928 BP Diastolic BP Location Tested BP Systolic BP Type 75 115 Fetus Heart Rate Present A 160 B 165 Fetus Movement A No B No Comments Zaina is a 21yo G1 at 12.3 for care. She has di/di twins, both with normal NT today. She is feeling ok most of the day, but does vomit most mornings. She is taking a PNV and will make sure it has 1mg of folic acid in it. Doing labs and NIPT today. Discussed and encouraged flu and COVID vaccines. We discussed the risks of twin pregnancies, including increased risks of defects, preeclampsia, GDM, growth problems, and labor and delivery. She should start ASA. She will see [facility] for anatomy US, growth USs, and testing. We discussed delivery by 38w and started discussing mode of delivery. Questions answered, support given, FU 4 w. Flowsheet Date 06/28/2022 Zuniga Score Blood Edema Fundus Height Fundus Units Glucose Ketones Leukocytes Nitrite Labor Signs Protein Cervic Dilation Cervic Effacement Cervic Station neg none none trace Type Weight in lbs Pre/Post Dialysis Refused Weight 173.845960745557 BP Diastolic BP Location Tested BP Systolic BP Type 81 126 Fetus Heart Rate Present A 155 B 145 Fetus Movement A No B No Comments Doing fine. Gender reveal th is week (boy/boy). Will get scheduled at [facility] for anatomy/consult. No concerns. Flowsheet Date 07/26/2022 Zuniga Score Blood Edema Fundus Height Fundus Units Glucose Ketones Leukocytes Nitrite Labor Signs Protein Cervic Dilation Cervic Effacement Cervic Station neg none 25 none trace Type Weight in lbs Pre/Post Dialysis Refused Weight 179.488454405704 BP Diastolic BP Location Tested BP Systolic BP Type 80 122 Fetus Heart Rate Present A 150 B 145 Fetus Movement A Yes B Yes Comments Doing well. Feeling FM now. [facility] today- got RS from snow. Precautions discussed. Flowsheet Date 08/23/2022 Zuniga Score Blood Edema Fundus Height Fundus Units Glucose Ketones Leukocytes Nitrite Labor Signs Protein Cervic Dilation Cervic Effacement Cervic Station neg none 32 none trace Type Weight in lbs Pre/Post Dialysis Refused Weight 185.757229226831 BP Diastolic BP Location Tested BP Systolic BP Type 77 116 Fetus Heart Rate Present A 140 B 135 Fetus Movement B Yes Comments Doing very well. Some back p ain. Good FM x2. GCT next. Taking ASA. Grwoth US at [facility]. Flowsheet Date 09/06/2022 Zuniga Score Blood Edema Fundus Height Fundus Units Glucose Ketones Leukocytes Nitrite Labor Signs Protein Cervic Dilation Cervic Effacement Cervic Station neg none 34 none trace Type Weight in lbs Pre/Post Dialysis Refused Weight 188.016362634808 BP Diastolic BP Location Tested BP Systolic BP Type 2 147 Fetus Heart Rate Present A 145 B 140 Fetus Movement A Yes B Yes Comments Doing well. NO concerns. Den ies any labor sx. GCT today. Discussed and encouraged Tdap. Discussed mode of delivery. She prefers section for controlled delivery circumstances. Will schedule for 38w. Flowsheet Date 09/20/2022 Zuniga Score Blood Edema Fundus Height Fundus Units Glucose Ketones Leukocytes Nitrite Labor Signs Protein Cervic Dilation Cervic Effacement Cervic Station neg trace 36 none trace Type Weight in lbs Pre/Post Dialysis Refused Weight 192.263580318125 BP Diastolic BP Location Tested BP Systolic BP Type 77 118 Fetus Heart Rate Present A 160 B 130 Fetus Movement A Yes B Yes Comments Doing well. GCT wnl. Anemia, taking iron. Bck to [facility] next week. Declines Tdap, no reason given, education done, information from [facility] given. CS scheduled for 38w. Flowsheet Date 10/09/2022 Zuniga Score Blood Edema Fundus Height Fundus Units Glucose Ketones Leukocytes Nitrite Labor Signs Protein Cervic Dilation Cervic Effacement Cervic Station Type Weight in lbs Pre/Post Dialysis Refused Weight 201.269897636949 BP Diastolic BP Location Tested BP Systolic BP Type 75 R arm 119 sitting Fetus Heart Rate Present Fetus Movement A Yes B Yes Comments bilateral feet edema - peyman l BP, sore pelvis, acid reflux worsening - recommended Prevacid or Prilosec, MFM today Flowsheet Date 10/23/2022 Zuniga Score Blood Edema Fundus Height Fundus Units Glucose Ketones Leukocytes Nitrite Labor Signs Protein Cervic Dilation Cervic Effacement Cervic Station Type Weight in lbs Pre/Post Dialysis Refused Weight 204.338262408633 BP Diastolic BP Location Tested BP Systolic BP Type 75 R arm 116 sitting Fetus Heart Rate Present Fetus Movement A Yes B Yes Comments No complaints, an uneventful twin , we talked about delivery. One of the babies is breech. The baby B. she understands that results in a delivery. She is prepared for that. Reassuring testing on both babies. Flowsheet Date 11/06/2022 Zuniga Score Blood Edema Fundus Height Fundus Units Glucose Ketones Leukocytes Nitrite Labor Signs Protein Cervic Dilation Cervic Effacement Cervic Station Type Weight in lbs Pre/Post Dialysis Refused Weight 207.981040139542 BP Diastolic BP Location Tested BP Systolic BP Type 81 R arm 122 sitting Fetus Heart Rate Present Fetus Movement Comments to see MFM today, twin pregn janet going well, to determine position a 2nd baby later today with MFM. is scheduled for 2 weeks from today. Flowsheet Date 11/17/2022 Zuniga Score Blood Edema Fundus Height Fundus Units Glucose Ketones Leukocytes Nitrite Labor Signs Protein Cervic Dilation Cervic Effacement Cervic Station Type Weight in lbs Pre/Post Dialysis Refused Weight 176.583955999872 BP Diastolic BP Location Tested BP Systolic BP Type 73 R arm 112 sitting Fetus Heart Rate Present Fetus Movement Comments Menstrual History Last Menstrual Date Menses Monthly On Bcp Conception Prior Menses Frequency Hcg Plus Date Menarche Onset Age 0902/26/2022 Genetic Screening And Infection History Question Response Note Mental Retardation/Autism false Patient's Age Will Be 35 Years Or Older At Estim ated Date of Delivery false Thalassemia (Bhutanese, Estonian, Mediterranean, Or Background): MCV < 80 false Neural Tube Defect (Meningomyelocele, Spina Bifi da, Or Anencephaly) false Congenital Heart Defect false Down Syndrome false Kana-Sachs (eg, Alevism, Cajun, Cook Islander-Bosque) f alse Jenny Disease false Sickle Cell Disease Or Trait () false Hemophilia Or Other Blood Disorders false Muscular Dystrophy false Cystic Fibrosis false Tucker's Chorea false Intellectual Disability/Autism false If Yes, Was Person Tested For Fragile X? false Other Inherited Genetic Or Chromosomal Disorder false Maternal Metabolic Disorder (eg, Type 1 Diabetes , PKU) false Patient Or Baby's Father Had A Child With Defects Not Listed Above false Recurrent Loss, Or A Stillbirth false Medications (including Suppl ements, Vitamins, Herbs, OTC Drugs), Illicit/Recreational Drugs, Alcohol false If Yes, Agent(s) And Strength/Dosage false Any Other Genetic History false Live With Someone With TB Or Exposed To TB false Patient Or Partner Has History Of Genital Herpes false Rash Or Viral Illness Since Last Menstrual Perio d false History Of STD, Gonorrhea, Chlamydia, HPV, Syphi lis false Other Infection History false History of HIV false History of Hepatitis false Prior GBS-infected child false Hemoglobinopathy Or Carrier false Other Structural Defect false Recent Travel History Outside of Country false Delivery Information Delivery Date Delivery Type Labor Anesthesia Weeks Gestation Incision Type Labor Labor Length Hrs Delivered By Post Complications Tubal Sterilization Discharge Date Comments 3 [facility] in[facility] 36.3 Low Transvers e true Gee Campuzano MD Dichorion ic/Diamni otic Twins Discharge Information Feeding Method Contraceptive Method Maternal HG B and HCT Levels
--- OUTSIDE RECORDS SUMMARY | 2025-03-30 09:57 | XMS_ITS | Encounter Summary ---
Author Organization [facility] Address [address] [place] [address] Care Team Providers Care Can Labeler Name Role Phone Sandi Ndiaye [facility] Primary Care Provider Jerome Calvillo MD Primary Care Provider [phone] Encounter Details Date Type Department Care Team (Late st Contact Info) Description 10/30/2023 Bliips Message Enc [facility] Medical Group Family Medicine [address] [address] Sandi Ndiaye [facility] Appointment Social History Tobacco Use Types Packs/Day Years Used Date Smoking Tobacco: Never Smokeless Tobacco: Never Alcohol Use Standard Drinks/Week Comments Not Currently 0 (1 standard drink = 0.6 oz pur e alcohol) rarely AUDIT-C Answer Date Recorded Q1: How often do you have a drink containing alc ohol? 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 Gender Identity Not on file Sexual Orientation Not on file documented as of this encounter Progress Notes * Nicol Burger MA - 10/31/2023 3:25 PM CDT Lvmm for pt to cb to get set up for vv at 3:40 today 10/31/2023 documented in this encounter Plan of Treatment Not on file documented as of this encounter Visit Diagnoses Not on filedocumented in this encounter Additional Health Concerns Assessment Noted Time PHQ-9 Depression Total Score: 13 021 10:54 AM ACCELERATOR OPERATOR documented as of this encounter Care Teams Can Labeler Relationship Specialty Start Date End Date [facility] PCP - General NURSE PRACTITIONER 03/05/20 02/23/24 Jerome Waters MD [address] [place] [address]. [place] [address] PCP - General FAMILY PRACTICE 02/24/24 02/28/24 documented as of this encounter
--- OUTSIDE RECORDS SUMMARY | 2025-03-30 09:57 | XMS_ITS | Encounter Summary ---
Author Organization [facility] Address [address] [place] [address] Care Team Providers Care Upholstery Cleaner Name Role Phone Sandi Ndiaye [facility] Primary Care Provider Jerome Calvillo MD Primary Care Provider [phone] Encounter Details Date Type Department Care Team (Late st Contact Info) Description 11/03/2021 Hi-G-Tekt Message Enc [facility] Medical Group Family Medicine [address] [address] Sandi Ndiaye [facility] Ct scan Social History Tobacco Use Types Packs/Day Years [...] please move on to questions 3-9 0 11/03/2021 Comments No Sex and Gender Information Value Date Recorded Sex Assigned at Not on file Legal Sex Female 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 No / Unsure 11/03/2021 11:10 AM CDT documented as of this encounter Plan of Treatment Not on file documented as of this encounter Visit Diagnoses Not on filedocumented in this encounter Additional Health Concerns Assessment Noted Time PHQ-9 Depression Total Score: 13 021 10:54 AM EARLY HEAD START TEACHER documented as of this encounter Care Teams Upholstery Cleaner Relationship Specialty Start Date End Date [facility] PCP - General NURSE PRACTITIONER 03/05/20 02/23/24 Jerome Waters MD [address] [facility] [place] [phone] PCP - General FAMILY PRACTICE 02/24/24 02/28/24 documented as of this encounter
--- OUTSIDE RECORDS SUMMARY | 2025-03-30 09:57 | XMS_ITS | Encounter Summary ---
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 [phone] PCP - General FAMILY PRACTICE 02/24/24 02/28/24 documented as of this encounter
--- OUTSIDE RECORDS SUMMARY | 2025-03-30 09:58 | XMS_ITS | Encounter Summary ---
Author Organization [facility] Address [address] [place] [address] Care Team Providers Care Message And Delivery Service Pricer Name Role Phone Sandi Ndiaye [facility] Primary Care Provider Jerome Calvillo MD Primary Care Provider [phone] Encounter Details Date Type Department Care Team (Late st Contact Info) Description 11/02/2021 [email or web address] Message Enc [facility] Medical Group Family Medicine [address] [address] Sandi Ndiaye [facility] Episode Social History Tobacco Use Types Packs/Day Years [...] on file Legal Sex Female 11:22 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 [phone] PCP - General FAMILY PRACTICE 02/24/24 02/28/24 documented as of this encounter
--- OUTSIDE RECORDS SUMMARY | 2025-03-30 09:58 | XMS_ITS | Encounter Summary ---
Author Organization [facility] Address [address] [place] [address] Care Team Providers Care Artistic Associate Name Role Phone Sandi Ndiaye [facility] Primary Care Provider Jerome Calvillo MD Primary Care Provider [phone] Encounter Details Date Type Department Care Team (Late st Contact Info) Description 03/23/2021 Puddlet Message Enc [facility] Medical Group Family Medicine [address] [address] Sandi Ndiaye [facility] RE:meds Social History Tobacco Use Types Packs/Day Years Used Date Smoking Tobacco: Never Smokeless Tobacco: Never Alcohol Use Standard Drinks/Week Comments Yes 0 (1 standard drink = 0.6 oz pur e alcohol) rarely AUDIT-C Answer Date Recorded Q1: How often do you have a drink containing alc ohol? 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 No / Unsure 03/18/2021 9:35 AM CDT documented as of this encounter Plan of Treatment Not on file documented as of this encounter Visit Diagnoses Not on filedocumented in this encounter Additional Health Concerns Assessment Noted Time PHQ-9 Depression Total Score: 13 03/18/ 021 9:36 AM CDT documented as of this encounter Care Teams Artistic Associate Relationship Specialty Start Date End Date Sandi Ndi[facility] PCP - General NURSE PRACTITIONER 03/05/20 02/23/24 Jerome Waters MD [address] [facility] [place] [phone] PCP - General FAMILY PRACTICE 02/24/24 02/28/24 documented as of this encounter
--- OUTSIDE RECORDS SUMMARY | 2025-03-30 09:58 | XMS_ITS | Encounter Summary ---
Author Organization [facility] Address [address] [place] [address] Care Team Providers Care Power Ballast Machine Operator Name Role Phone Sandi NdiayeKENYATTA Primary Care Provider Jerome Calvillo MD Primary Care Provider Encounter Details Date Type Department Care Team (Late st Contact Info) Description 02/18/2024 DonorProt Message Enc [facility] Medical Group Family Medicine [address] [address] Sandi Ndiaye FNP-BC Over eating Social History Tobacco Use Types Packs/Day Years [...] on file 03/25 PHQ-2 Answer Date Recorded Patient Health Questionnaire-2 Score 0 12/06/2023 Comments No Sex and Gender Information Value Date Recorded Sex Assigned at Not on file Legal Sex Female 11:22 PM DOCK BUILDER Gender Identity Not on file Sexual Orientation Not on file documented as of this encounter Progress Notes * Pilar Cavazos MA - 02/18/2024 4:28 PM CDT Recommendations? Should pt make appt? documented in this encounter Plan of Treatment Not on file documented as of this encounter Visit Diagnoses Not on filedocumented in this encounter Additional Health Concerns Assessment Noted Time PHQ-9 Depression Total Score: 13 021 10:54 AM DOCK BUILDER documented as of this encounter Care Teams Power Ballast Machine Operator Relationship Specialty Start Date End Date Sandi Ndiaye FNP- PCP - General NURSE PRACTITIONER 03/05/20 02/23/24 Jerome Waters MD [address] [facility] [place] [address] PCP - General FAMILY PRACTICE 02/24/24 02/28/24 documented as of this encounter
--- OUTSIDE RECORDS SUMMARY | 2025-03-30 09:58 | XMS_ITS | Encounter Summary ---
Author Organization [facility] Address [address] [place] [address] Care Team Providers Care Field Artillery Operations Man Name Role Phone Sandi Ndiaye [facility] Primary Care Provider Jerome Calvillo MD Primary Care Provider [phone] Encounter Details Date Type Department Care Team (Late st Contact Info) Description 03/15/2021 [employer] Message Enc [facility] Medical Group Family Medicine [address] [address] Sandi Ndiaye [facility] RE: Question Social History Tobacco Use Types Packs/Day Years [...] on file Legal Sex Female 11:22 PM DATA MANAGEMENT Gender Identity Not on file Sexual Orientation [...] Diagnoses Not on filedocumented in this encounter Care Teams Field Artillery Operations Man Relationship Specialty Start Date End Date [facility] PCP - General NURSE PRACTITIONER 03/05/20 02/23/24 Jerome Waters MD [address] [place] [address] PCP - General FAMILY PRACTICE 02/24/24 02/28/24 documented as of this encounter
--- OUTSIDE RECORDS SUMMARY | 2025-03-30 09:58 | XMS_ITS | Clinical Summary ---
Author Organization [facility] Address [address] [place] [address] Care Team Providers Care Solution Designer Name Role Phone Unavailable Primary Care Provider Unavailabl e Allergies No known active allergies Medications sertraline (ZOLOFT) 50 MG tablet Take 1 tablet (50 mg total) by mouth daily. Active levonorgestrel (MIRENA) 20 MCG/DAY IUD 1 Intra Uterine Device by Intrauterine route once. Active methylPREDNISol one, STACIE, (MEDROL DOSEPAK) 4 MG tabletIndicatio ns:Bronchitis Take per package directions 1 each 4 Active albuterol sulfate HFA 108 (90 Base) MCG/ACT inhalerIndicati ons:Bronchitis Inhale 2 puffs into the lungs every 4 (four) hours as needed for Wheezing or Shortness of breath. 18 g 4 Active triamcinolone (KENALOG) 0.1 % creamIndication s:Flexural atopic dermatitis Apply topically 2 (two) times daily. Inner arms 80 g 2 4 Active cefdinir (OMNICEF) 300 MG Cap capsuleIndicati ons:Acute otitis media, unspecified otitis media type Take 1 capsule (300 mg total) by mouth 2 (two) times daily. 20 capsule 4 Active Active Problems Problem Noted Date Diagnosed Date Chronic non-seasonal allergic rhinitis 7 Flexural atopic dermatitis 03/02/2017 Immunizations Immunization Administration Dates Next Due Dtap 01/02/2007, 3,07/15/2002,03/26/2002 ,2001 Flumist (Intranasal) 05/01/2012 HPV4 (Gardasil) 10/22/2014,01/27/2014 Hepatitis A (Havrix [address]) 03/02/2017, 014 Hepatitis A Vaccine - 2 Dose 03/02/2017,01/28/20 14 Hepatitis B Pediatric 03/26/2002,2001,07/26 Hepatitis B/Hib 3 Dose Schedule 03/26/2002,10/08 Hib 04/29/2003,07/15/2002 Hib (Generic) 04/29/2003,07/15/2002 Hib Vaccine, Prp-T 04/29/2003,07/15/2002, 002,2001 Hib-Hepatitis B (Comvax) 03/26/2002,2001 Influenza (Generic) 05/01/2012,06/07/2010,2008 MMR 01/02/2003 MMR (Generic) 01/02/2007 MMR (MMRII) 01/02/2003 Meningococcal 01/27/2014 Meningococcal (Menactra) 04/06/2020 Meningococcal Vac A,C,Y,W-135 Sc 01/27/2014 Meningococcal(Mcv 4)Aka Menactra 01/27/2014 Polio IPV (Ipol) 01/02/2007,07/15/2002, 2,2001 Polio Ipv (Generic) 01/02/2007,07/15/2002,2001,2001 Tdap (Generic) 01/27/2014 Varicella (Varivax) 01/02/2003 Varicella Vaccine 01/02/2007,01/02/2003 Varicella/MMR (Proquad) 01/02/2007 Family History Medical History Relation Comments Depression Father Hypertension Mother Relation Status Comments Brother Alive Father Alive Mother Alive Sister Alive Social History Tobacco Use Types Packs/Day Years Used Date Smoking Tobacco: Never Smokeless Tobacco: Never Tobacco Cessation:Counseling Given: No Alcohol Use Standard Drinks/Week Comments Not Currently [...] on file Legal 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 Gender Identity Not on file Sexual Orientation Not on file Last Filed Vital Signs Vital Sign Reading Time Taken Comments Blood Pressure 114/84 12/06/2023 10:25 AM CDT Pulse 85 12/06/2023 10:25 AM CDT Temperature 36.8 C (98.3 F) 12/06/2023 10:25 AM CDT Respiratory Rate 14 12/06/2023 10:25 AM CDT Oxygen Saturation 97% 12/06/2023 10:25 AM CDT Inhaled Oxygen Concentration - - Weight 80.1 kg (176 lb 9.6 oz) 12/06/2023 10:25 AM CDT Height 165.1 cm (5' 5) 12/06/2023 10:25 AM CDT Body Mass Index 29.39 12/06/2023 10:25 AM CDT Plan of Treatment Health Maintenance Due Date Last Done Comments Cervical Cancer Screening Pap Smear (Age 21 to 29) Every 3 Years 2001 Cervical Cancer Screening 2001 Chlamydia Screening Females ages 16-24 2017 Meningococcal B Vaccine (1 of 2 - Standard) 2017 Hepatitis C 2019 Annual Physical 03/30/2023 03/30/2022, 04/06/2020 DTaP, Tdap and Td Vaccines (7 - Td or Tdap) 01/28/2024 01/27/2014, 01/02/2007, 04/29/2003, Additional history exists PHQ-2 (Physician [place]) 06/25/2024 12/06/2023 COVID-19 Vaccine ( season) 2025 Hepatitis B Vaccines Completed 03/26/2002, 03/26/2002, 03/26/2002, Additional history exists HPV Vaccines Completed 10/22/2014, 01/27/2014 Meningococcal Vaccine Completed 04/06/2020 , 01/27/2014, 01/27/2014 Pneumococcal Vaccine: Pediatrics (0 to 5 Years) and At-Risk Patients (6 to 49 Years) Aged Out No longer eligible based on patient's age to complete this topic RSV Immunizations Under 20 Months Aged Out No longer eligible based on patient's age to complete this topic Insurance [facility]
--- OUTSIDE RECORDS SUMMARY | 2025-03-30 09:58 | XMS_ITS | Clinical Summary ---
Author Organization [facility] Address [address] [place] [address] Care Team Providers Care Group Director Experience Name Role Phone Unavailable Primary Care Provider Unavailabl e Source Comments [facility],non-owned Affiliates and Associated Physician Practices is amultiple site organization consisting of ambulatory clinics and hospital sitesin [place], [place], [place] and [place]. This disclosure is being madepursuant to the Care Everywhere program and may not contain all information available regarding this patient. Last updated 18.[facility] Allergies No known active allergies Medications * Be aware that medications may not be up to date on this document. Alwaysverify current medications with the patient. Vit-DSS-Fe Fum-FA ( vitamin with iron) tablet Take 1 (one) tablet by mouth once daily Active Active Problems Problem Noted Date Diagnosed Date Chronic non-seasonal allergic rhinitis 7 Flexural atopic dermatitis 03/02/2017 Dysmenorrhea 03/02/2017 Immunizations Immunization Administration Dates Next Due DTaP VACCINE IM (6wk-6yrs) 01/02/2007,,07/15/2002,03/26/2002, HEP A PEDS 2 DOSE 03/02/2017,01/27/2014 HEP B VACCINE, PED/ADOL 03/26/2002,2001, HIB-PRP-T 4 DOSE 04/29/2003,07/15/2002, 2,2001 Human Papilloma Virus Vaccine 10/22/2014, 014 INFLUENZA VACCINE 05/01/2012,06/07/2010,04/02/20 09 MENINGOCOCAL MENINGITIS 01/27/2014 MMR 01/02/2007,01/02/2003 POLIO IPV 01/02/2007,07/15/2002,03/26/2002 ,2001 TDAP (7yrs+) 01/27/2014 VARICELLA 01/02/2007,01/02/2003 Family History Medical History Relation Name Comments Cancer - Lung Maternal Grandmother Hypertension Mother Asthma Neg Hx Autoimmune Disease Neg Hx Bipolar Disorder Neg Hx Cancer - Breast Neg Hx Cancer - Colon Neg Hx Cancer - Other Neg Hx Cancer - Ovarian Neg Hx Cancer - Pancreatic Neg Hx Cancer - Prostate Neg Hx Depression Neg Hx Eczema Neg Hx Migraine Neg Hx Osteoporosis Neg Hx Seizures Neg Hx Sudd. <30 Neg Hx Thyroid Disease Neg Hx Ulcerative Colitis Neg Hx Relation Name Status Comments Father Alive Maternal Grandmother Alive Mother Alive Social History Tobacco Use Types Packs/Day Years Used Date Smoking Tobacco: Never Smokeless Tobacco: Never Tobacco Cessation:Counseling Given: No Alcohol Use Standard Drinks/Week Comments Not Currently 0 (1 standard drink = 0.6 oz pur e alcohol) Comments No Sex and Gender Information Value Date Recorded Sex Assigned at Not on file Legal Sex Female 5:41 AM CEMENT PAVER Gender Identity Not on file Sexual Orientation Not on file Last Filed Vital Signs Vital Sign Reading Time Taken Comments Blood Pressure 139/99 11/06/2022 2:34 PM CDT Pulse 87 11/06/2022 2:34 PM CDT Temperature 36.7 C (98.1 F) 02/24/2019 3:44 PM CDT Respiratory Rate 20 02/24/2019 3:44 PM CDT Oxygen Saturation 99% 07/26/2022 2:34 PM CEMENT PAVER Inhaled Oxygen Concentration - - Weight 78.9 kg (174 lb) 07/26/2022 2:34 PM CEMENT PAVER Height 162.6 cm (5' 4) 07/26/2022 2:34 PM CEMENT PAVER Body Mass Index 29.87 07/26/2022 2:34 PM CEMENT PAVER Plan of Treatment Health Maintenance Due Date Last Done Comments MENINGOCOCCAL (Group B) VACCINE SHARED DECISION-MAKING (1 of 2 - Standard) 2017 HEPATITIS C SCREENING 08/02/2019 PAP SMEAR 2022 CHLAMYDIA/GONORRHEA SCREENING 04/26/2023 04/26/2022 DTAP/TDAP/TD VACCINES (7 - Td or Tdap) 01/28/2024 01/27/2014, 01/02/2007, 04/29/2003, Additional history exists DEPRESSION SCREENING 06/25/2024 COVID-19 VACCINE ( season) 2025 INFLUENZA VACCINE (#1) 2025 2, 06/07/2010, 04/02/2009 ZOSTER VACCINE (1 of 2) 2051 HEPATITIS B VACCINE Completed 03/26/2002, 2001, 2001 HIB VACCINE Completed 04/29/2003, 06/26, 03/26/2002, Additional history exists MENINGOCOCCAL GROUPS A/C/Y/W VACCINE Aged Out 01/27/2014 No longer eligible based on patient's age to complete this topic HPV VACCINE Completed 10/22/2014, 01/27/2014 HIV SCREENING Completed 09/06/2022, 05/24/2022 PNEUMOCOCCAL VACCINE Aged Out No long er eligible based on patient's age to complete this topic Goals Goal Patient Goal Type Associated Problems Recent Progress Patient-Stated? Author Use safety retraint in car Lifestyle On track( 017 10:02 AM CDT) No Yenni Arredondo [place] [id number] MARCIA MARCIA
--- OUTSIDE RECORDS SUMMARY | 2025-03-30 09:58 | XMS_ITS | Encounter Summary ---
Author Organization [facility] Address [address] [place] [address] Care Team Providers Care Local Az Truck Driver Name Role Phone Sandi Ndiaye Primary Care Provider Unav ailJerome Hunter MD Primary Care Provider [phone] Encounter Details Date Type Department Care Team (Late st Contact Info) Description 05/13/2020 A+ Network Message Enc [facility] Family Medicine [address] [address] Sandi Ndiaye FNP-BC Eczema? 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 [address] PCP - General FAMILY PRACTICE 02/24/24 02/28/24 documented as of this encounter
== END 2025-03-30 09:49 | disposition home or self-care (01) ==
PROVIDERS: Emergency Provider Nurse Practitioner Family
DX: H10.32 Unspecified acute conjunctivitis, left eye (principal)
CPT/HCPCS: 99213; G0463

== ENCOUNTER 2025-05-07 13:02 | Emergency (ER) | payer BC, MEDICAID, SELFPAY ==
[2025-05-07 13:11] VITALS: BP 104/66; PULSE 76; RESP 18; TEMP 36.6; O2SAT 100
[2025-05-07 13:27] LABS: EDUAAPPEAR Cloudy; EDUABILI Negative (Negative); EDUABLOOD 2+ (Negative); EDUACOLOR1 Yellow; EDUAGLUCOSE Negative (Negative); EDUAKETONE Negative (Negative); EDUALEUKO 2+ (Negative); EDUANITRATE Negative (Negative); EDUAPH 6.0; EDUAPROTEIN 2+ (Negative); EDUASPGRAVITY 1.025; EDUAUROBILI 0.2
[2025-05-07] MEDS: cefTRIAXone 500 MG, LIDOCAINE 1% LOCAL INJ 1 ML IM (13:31)
--- NOTE | 2025-05-07 13:33 | ED_ITS ---
HPI - Female Genitourinary General Chief complaint: Urogenital-Female Stated complaint: UTI Time Seen by Provider: 05/07/25 13:19 Source: patient and RN notes reviewed Mode of arrival: ambulatory Limitations: no limitations History of Present Illness HPI Narrative: Patient presents today complaining of urgency, frequency, voiding small amounts, pain after voiding, larger amounts of normal white vaginal discharge and light pink blood on toilet paper intermittently with wiping. Symptoms have been present for 1 week. Denies abdominal pain, back pain, vomiting, fever. Patient had unprotected intercourse with a new partner approximately 10 days ago. Related Data Home Medications ?Medication ?Instructions ?Recorded ?Confirmed ?Last Taken ?Type sertraline 50 mg tablet mg 03/30/25 Unknown History Allergies Allergy/AdvReac Type Severity Reaction Status Date / Time No Known Allergies Allergy Verified 05/07/25 13:16 PMFSH Past Medical History Medical History No significant past medical history Surgical History Surgical History No history of previous surgery Social History Social History Smoking status: Never smoker Alcohol intake: current Alcohol use details: social Substance use: never Substance use type: does not use Lack of Transportation: No Lack of Food: Never True Current Housing: I Have Housing Concerned About Future Housing: No Difficulty Paying Gas/Electric Bills: No Difficulty Paying for Meds: No Currently Unemployed: No Education: High School Diploma/GED Difficulty w/ Childcare or Family Care: No Living arrangements: with family Gender identity (if verbalized by the patient): Female Spiritual care concerns: No Comments At time of signature, I have reviewed and agree with nursing past medical, surgical, social and family history unless otherwise noted. Please see nursing chart for further information. There is no relevant family history pertinent to the presenting complaint Exam Narrative: GENERAL: Well-appearing, well-nourished, and in no acute distress. HEAD: Normocephalic, atraumatic. EYES: EOMI. No redness or drainage. Conjunctivae normal. ENT: Mucous membranes pink and moist.. NECK: Normal AROM. CHEST: No respiratory distress. Clear to auscultation. HEART: Regular rate and rhythm. No murmur appreciated. ABDOMEN: Soft, nontender, nondistended, normal active bowel sounds. EXTREMITIES: Normal range of motion. No edema. SKIN: Warm, dry, no rash. Capillary refill normal. NEURO: No focal deficits. Alert and oriented x3. Gait steady. PSYCH: Normal affect. No signs of depression or anxiety. Course Course Level of Care: Express Care Visit Vital Signs Vital signs: Vital Signs Temperature 97.9 F 05/07/25 13:11 Pulse Rate 76 05/07/25 13:11 Respiratory Rate 18 05/07/25 13:11 Blood Pressure 104/66 05/07/25 13:11 Pulse Oximetry 100 05/07/25 13:11 Oxygen Delivery Room Air 05/07/25 13:11 Temperature 97.9 F 05/07/25 13:11 Pulse Rate 76 05/07/25 13:11 Respiratory Rate 18 05/07/25 13:11 Blood Pressure 104/66 05/07/25 13:11 Pulse Oximetry 100 05/07/25 13:11 Oxygen Delivery Room Air 05/07/25 13:11 Reviewed MDM - Female Genitourinary MDM Narrative Medical decision making narrative: Patient presents today complaining of urgency, frequency, voiding small amounts, pain after voiding, larger amounts of normal white vaginal discharge and light pink blood on toilet paper intermittently with wiping. Symptoms have been present for 1 week. Denies abdominal pain, back pain, vomiting, fever. Patient had unprotected intercourse with a new partner approximately 10 days ago. Normal physical exam. Urinalysis shows cloudy urine with 2+ protein, 2+ blood, 2+ leukocytes, consistent with UTI with considered with HPI symptoms. Urine culture pending. Will treat with cephalexin. Dirty urine sample also be sent to labs to test for gonorrhea, chlamydia, and Trichomonas. Patient will be prophylactically treated with gonorrhea. She would like to hold off starting on Flagyl or doxycycline until testing returns. Vital signs stable. Patient agrees to plan. Anticipatory guidance given. Differential Diagnosis Differential diagnosis: Likely urinary tract infection, vaginitis, cystitis and other (Gonorrhea, chlamydia, Trichomonas) Lab Data Attestation: I reviewed the patient's lab results. Labs: Lab Results 05/07/25 Range/Units 13:24 POC Urine Color Yellow POC Urine Clarity Cloudy POC Urine pH 6.0 POC Ur Specif [place] 1.025 POC Urine Protein 2+ (Negative) POC Ur Glucose (UA) Negative (Negative) POC Urine Ketones Negative (Negative) POC Urine Blood 2+ (Negative) POC Urine Nitrite Negative (Negative) POC Urine Bilirubin Negative (Negative) POC Urine Urobilinogen 0.2 POC U Leukocyte Esteras 2+ (Negative) Critical Care Time Critical Care Time Critical Care Time: No Discharge Plan Discharge Clinical Impression: Encounter for screening examination for sexually transmitted infection Urinary tract infection Qualifiers: Urinary tract infection type: acute cystitis Hematuria presence: with hematuria Qualified Code(s): N30.01 - Acute cystitis with hematuria Patient Disposition: Home Condition: Stable Instructions: Chlamydia (ED), Gonorrhea (ED), Trichomoniasis (ED), Urinary Tract Infection in Women (DC) Additional Instructions: Your urine shows infection today. Take cephalexin as prescribed until gone. Your urine will be sent of for a culture to identify what type of bacteria is causing your infection. If the culture shows that your medication will not get rid of your infection, you will be notified and a new antibiotic will be called in for you. If your symptoms worsen to include fever, sweats, chills, nausea, vomiting, severe abdominal or back pain, please go to the ER for further evaluation. Your urine sample has been sent off to test for gonorrhea, chlamydia, and trichomonas infections. These tests can take up to 24 hours to come back. You will be notified by telephone if any of your tests come back positive. You have been treated with Rocephin in urgent care today to cover you for gonorrhea. If your tests come back positive for chlamydia or Trichomonas, you will need antibiotics called in for treatment. If any of your test come back positive, you will need to notify any partners that you have, and they will need to be tested and treated. If your symptoms worsen to include fever, abdominal pain, or back pain, please go to the hospital immediately. Patient Language: Israeli Prescriptions: New cephalexin 500 mg capsule 500 mg PO BID 7 Days Qty: 14 0RF No Action sertraline 50 mg tablet Follow-up/Referrals: Henry Wylie MD [Primary Care Provider, Family Practice] Time of Disposition: 13:33
--- OUTSIDE RECORDS SUMMARY | 2025-05-07 13:44 | XMS_ITS | Clinical Summary ---
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
--- OUTSIDE RECORDS SUMMARY | 2025-05-07 13:44 | XMS_ITS | Data Portability ---
Author Organization [facility] [place] Address [address] [place] [address] Care Team Providers Care Palletiser Operator Name Role Phone TINY SKELTON Primary Care [...] None recorded. Lab urinalysis, dipstick 2024 025 [email or web address] [place], [address], [place], [address], 11:43:25 culture, urine 2024 025 [facility] (Lab), [address], [place], [address], 5 08:34:44 unlisted lab - women's health swab plus, SHWETHA 2024 025 [facility] (Lab), [address], [place], [address], 5 08:34:44 urinalysis, dipstick 2024 025 [email or web address] [place], [address], [place], [address], 15:24:39 culture, urine 2024 025 [facility] (Lab), [address] [place], [address], 5 23:01:09 unlisted lab - women's health swab plus, SHWETHA 2024 025 [facility] (Lab), [address] [facility], [place], [address], 5 23:01:09 Referral None recorded. Procedures None recorded. Surgeries None recorded. Imaging None recorded. Medication Orders Macrobid 100 mg capsule [id number] [facility] #[id number], [address] [place], [place], [id number], 5 11:41:41 metronidazo le 0.75 % (37.5 mg/5 gram) vaginal gel 2024 025 [facility] #83261, [address] [place], [place], [id number], 5 09:43:58 nitrofurant oin monohydrate /macrocryst als 100 mg capsule 2024 025 [facility] #39196, [address] [place], [place], [id number], 5 09:43:55 sertraline 50 mg tablet 2023 024 [facility] #48198, [address], [place], [id number], 4 12:29:34 sertraline 50 mg tablet 2023 024 [facility] #15058, [address], [place], [place], [id number], 4 16:29:08 sertraline 100 mg tablet 2023 024 [facility], [address], [place], [place], [id number], 4 11:11:27 Patient TargetsNo targets recorded. Patient [...] as clini josep lucas nted. Not Available [facility] ([facility]) [address], [place], [address], 12/13/2023 09:24:14 12/10/19 24 12/10/2023 TRICH OMONA S VAGIN NGA (RRNA ) trichomonas vaginalis ribosomal RNA (rrna) Negati ve negati ve Not Available [facility] (Lab) [address], [place], [address], 12/13/2023 09:24:15 12/10/19 24 12/10/2023 CT/GC (DEBI) , THINP REP VIAL chlamydia trachomatis, PCR Negati ve negati ve Not Available [facility] (Lab) [address] [facility], [place], [address], 12/13/2023 09:24:16 12/10/19 24 12/10/2023 CT/GC (DEBI) , THINP REP VIAL neisseria gonorrhoeae, PCR Negati ve negati ve Not Available [facility] (Lab) [address] [facility], [place], [address], 12/13/2023 09:24:16 07/17/19 25 07/17/2024 WOMEN 'S HEALT H SWAB PLUS, SHWETHA bacterial vaginosis (bv), tma Negati ve negati ve Not Available [facility] (Lab) [address] [facility], [place], [address], 07/19/2024 23:01:09 07/17/19 25 07/17/2024 WOMEN 'S HEALT H SWAB PLUS, SHWETHA alexandra species, tma Negati ve negati ve Not Available [facility] (Lab) [address] [facility], [place], [address], 07/19/2024 23:01:09 07/17/19 25 07/17/2024 WOMEN 'S HEALT H SWAB PLUS, SHWETHA alexandra glabrata, tma Negati ve negati ve Not Available [facility] (Lab) [address] [place], [address], 07/19/2024 23:01:09 07/17/19 25 07/17/2024 WOMEN 'S HEALT H SWAB PLUS, SHWETHA trichomonas vaginalis, tma Negati ve negati ve Not Available [facility] (Lab) [address] [place], [address], 07/19/2024 23:01:09 07/17/19 25 07/17/2024 WOMEN 'S HEALT H SWAB PLUS, SHWETHA chlamydia trachomatis, PCR Negati ve negati ve Not Available [facility] (Lab) [address] [facility], [place], [address], 07/19/2024 23:01:09 07/17/19 25 07/17/2024 WOMEN 'S [...] ded in this panel . Not Available [facility] (Lab) [address] [facility], [place], [address], 07/19/2024 23:01:09 07/17/19 25 07/17/2024 CULTU RE: URINE result report SEE RESULT S BELOW abnormal Test: Cultu re: Urine Speci men Sourc e: Urine - Clean Catch Speci men Type: Urine Speci men Date: 2024 1430 Resul t Date: 20246 Resul t Statu s: Final resul t Abnor mal: Yes Anh causey Lab: [facility] [address] [facility] [address] Tel: CULTU RE ----- ----- ----- --- >100, [...] <=0.5 ug/mL Susce ptibl e Not Available [facility] (Lab) [address], [place], [address], 07/19/2024 23:01:09 07/17/1907/17/2024 urina lysis , dipst ick Leukocytes + Not Available [facility] [address], [place], [address], 07/17/2024 15:13:34 07/17/1907/17/2024 urina lysis , dipst ick Nitrite - Not Available [place] [address], [place], [address], 07/17/2024 15:13:34 07/17/19 25 07/17/2024 urina lysis , dipst ick Urobilinogen - Not Available [facility] [address], [place], [address], 07/17/2024 15:13:34 07/17/19 25 07/17/2024 urina lysis , dipst ick Protein trace Not Available [place] [address], [place], [address], 07/17/2024 15:13:34 07/17/19 25 07/17/2024 urina lysis , dipst ick pH 5 Not Available [place] [address], [place], [address], 07/17/2024 15:13:34 07/17/19 25 07/17/2024 urina lysis , dipst ick Specific [place] 1.030 Not Available [facility], [place], [address], 07/17/2024 15:13:34 07/17/19 25 07/17/2024 urina lysis , dipst ick Ketone - Not Available [place] [address], [place], [address], 07/17/2024 15:13:34 07/17/19 25 07/17/2024 urina lysis , dipst ick Bilirubin - Not Available [facility] [address], [place], [address], 07/17/2024 15:13:34 07/17/19 25 07/17/2024 urina lysis , dipst ick Glucose - Not Available [place] [address], [place], [address], 07/17/2024 15:13:34 07/17/19 25 07/17/2024 urina lysis , dipst ick Appearance cloudy Not Available [facility] [address], [place], [address], 07/17/2024 15:13:34 07/17/19 25 07/17/2024 urina lysis , dipst ick Color dark yellow Not Available [place] [address], [place], [address], 07/17/2024 15:13:34 10/24/19 25 10/23/2024 CULTU RE: URINE result report SEE RESULT S BELOW Test: Cultu re: Urine Speci men Sourc e: Urine - Clean Catch Speci men Type: Urine Speci men Date: 1121 Resul t Date: 2211 Resul t Statu s: Final resul t Abnor mal: No Resul ting Lab: [facility] [address] [facility] [address] Tel: CULTU RE ----- ----- ----- --- Cultu re resul t (>=3 organ isms prese nt) indic ates possi ble conta minat ion. Repea t cultu re if sympt oms indic ate. Not Available [facility] ([facility]) [address] [place], [address], 10/28/2024 08:34:43 10/24/19 25 10/23/2024 WOMEN 'S HEALT H SWAB PLUS, SHWETHA bacterial vaginosis (bv), tma Negati ve negati ve Not Available [facility] ([facility]) [address] [place], [address], 10/28/2024 08:34:44 10/24/19 25 10/23/2024 WOMEN 'S HEALT H SWAB PLUS, SHWETHA alexandra species, tma Positi ve negati ve abnormal Not Available [facility] (Lab) [address] [facility], [place], [address], 10/28/2024 08:34:44 10/24/19 25 10/23/2024 WOMEN 'S HEALT H SWAB PLUS, SHWETHA alexandra glabrata, tma Negati ve negati ve Not Available [facility] (Lab) [address] [place], [address], 10/28/2024 08:34:44 10/24/19 25 10/23/2024 WOMEN 'S HEALT H SWAB PLUS, SHWETHA trichomonas vaginalis, tma Negati ve negati ve Not Available [facility] ([facility]) [address] [facility], [place], [address], 10/28/2024 08:34:44 10/24/1910/23/2024 [facility], SHWETHA chlamydia trachomatis, PCR Negati ve negati ve Not Available [facility] ([facility]) [address] [place], [address], 10/28/2024 08:34:44 10/24/1910/23/2024 [facility], SHWETHA neisseria gonorrhoeae, PCR [...] ded in this panel . Not Available [facility] ([facility]) [address], [place], [address], 10/28/2024 08:34:44 10/24/19 25 10/23/2024 urina lysis , dipst ick Leukocytes ++ Not Available [facility] [address], [place], [address], 10/23/2024 11:41:55 10/24/19 25 10/23/2024 urina lysis , dipst ick Nitrite + Not Available [place] [address], [place], [address], 10/23/2024 11:41:55 10/24/19 25 10/23/2024 urina lysis , dipst ick Urobilinogen Normal Not Available [facility] [address], [place], [address], 10/23/2024 11:41:55 10/24/19 25 10/23/2024 urina lysis , dipst ick Protein Trace Not Available [place] [address], [place], [address], 10/23/2024 11:41:55 10/24/19 25 10/23/2024 urina lysis , dipst ick pH 9 Not Available [place] [address], [place], [address], 10/23/2024 11:41:55 10/24/19 25 10/23/2024 urina lysis , dipst ick Blood + Not Available [place] [address], [place], [address], 10/23/2024 11:41:55 10/24/19 25 10/23/2024 urina lysis , dipst ick Specific [place] 1.005 Not Available [facility] [address], [place], [address], 10/23/2024 11:41:55 10/24/19 25 10/23/2024 urina lysis , dipst ick Ketone - Not Available [place] [address], [place], [address], 10/23/2024 11:41:55 10/24/19 25 10/23/2024 urina lysis , dipst ick Bilirubin - Not Available [facility] [address], [place], [address], 10/23/2024 11:41:55 10/24/19 25 10/23/2024 urina lysis , dipst ick Glucose Normal Not Available [place] [address], [place], [address], 10/23/2024 11:41:55 10/24/19 25 10/23/2024 urina lysis , dipst ick Appearance Cloudy Not Available [facility] [address], [place], [address], 10/23/2024 11:41:55 10/24/19 25 10/23/2024 urina lysis , dipst ick Color Dark Yellow Not Available [place] [address], [place], [address], 10/23/2024 11:41:55 10/29/19 25 10/28/2024 HEPAT ITIS B SURFA CE ANTIG EN hepatitis B surface antigen Non-re active non-re active This assay was perfo rmed using [employer] ratio n reage nts and test kits. Value s obtai adrian with other assay metho ds or kits canno t be used inter lee eably . Not Available [facility] (Lab) [address], [place], [address], 10/29/2024 14:59:41 05/06/20 25 10/28/2024 HIV 1/2 ANTIG EN/AN TIBOD Y, REFLE X CONFI RMATI ON HIV antigen/anti body Nonrea ctive nonrea ctive HIV-1 antig en and HIV-1 /HIV- 2 antib odies were not detec jorge. No labor atory evide nce of HIV infec tion. Not Available [facility] ([facility]) [address] [place], [address], 10/29/2024 14:59:41 10/29/19 25 10/28/2024 HEPAT ITIS C ANTIB ADEEL SCREE N, REFLE X TO CONFI RMATI ON hepatitis C antibody Non-re active non-re active Antib odies to HCV Not Detec jorge, does not exclu de the possi bilit y of expos ure to HCV. Not Available [facility] ([facility]) [address], [place], [address], 10/29/2024 14:59:42 10/29/19 25 10/28/2024 HEPAT ITIS B CORE, IGM hepatitis B core IgM antibody Non-re active non-re active Antib odies to Hepat itis B Core IgM not detec jorge. Does not exclu de the possi bilit y of expos ure to or infec tion with HBV. Corre late with other Hepat itis B serol ogies . Not Available [facility] ([facility]) [address], [place], [address], 10/29/2024 14:59:42 10/29/1910/28/2024 RPR SCREE N, REFLE X TITER /CONF IRMAT ION RPR qualitative Nonrea ctive nonrea ctive Not Available [facility] ([facility]) [address] [place], [address], 10/29/2024 14:59:42 Result Notes None recorded. Problems Name Problem SNOMED Code Status Onset Date Resolution Date Notes Provider Name and Address Organization Details Recorded Time Dichorio liliam diamniot ic twin pregnanc y [id number] Completed MFM 07/26/22. ASA QD, serial growth, 1x/wk testing @ 36wks Nixon Lopez [facility] 3 15:24:25 Pregnanc y [id number] Completed 202112/08/2022 Nixon michele, [facility] 3 15:24:30 Problem Notes None recorded. Procedures Surgical History Date Name Laterality Status Provider Name and Address Organization Details Recorded Time 12/10/19 24 Date of Last Pap Smear completed Suyapa Ramirez [facility] 10/23/2024 09:44:29 06/11/20 23 IUD Insertion completed KIAH Herrera [address], [place], [address], [facility] 06/11/2023 16:50:45 11/09/19 23 SECTION (SURG) completed Gabi Silva [facility] 11/09/2022 10:31:45 06/25/19 10 Tonsillectomy completed Monica Aponte [facility] 04/26/2022 12:24:34 Imaging Results None recorded. [...] IUD insert (supplie d by office) lot [id number] Exp May 2025 and needs removed by [...] Updated DateTime 07/17/2024 162.56 cm 32 kg/m2 75040.9 g 117/74 mm[Hg] Adelaide Perez [facility] 07/17/2024 15:12:59 Date Recorded Body height Body mass index (BMI) Body weight Systolic And Diastolic Provider Name and Address Organization Details Last Updated DateTime 09/04/2023 162.56 cm 30.7 kg/m2 86366.03 g 118/75 mm[Hg] Monica Aponte [facility] 09/04/2023 17:18:30 Date Recorded Body height Body mass index (BMI) Body weight Systolic And Diastolic Provider Name and Address Organization Details Last Updated DateTime 10/23/2024 162.56 cm 29.8 kg/m2 05901.92 g 109/72 mm[Hg] Suyapa Ramirez [facility] 10/23/2024 09:43:32 Date Recorded Body height Body mass index (BMI) Body weight Systolic And Diastolic Provider Name and Address Organization Details Last Updated DateTime 10/29/2023 162.56 cm 30.6 kg/m2 70367.44 g 114/79 mm[Hg] Monica Aponte [facility] 10/29/2023 16:18:59 Date Recorded Body height Body mass index (BMI) Body weight Systolic And Diastolic Provider Name and Address Organization Details Last Updated DateTime 12/10/2023 162.56 cm 30.6 kg/m2 69926.44 g 106/73 mm[Hg] Nancy Clark [facility] 12/10/2023 11:10:42 Social History Question Answer Notes LastModified by Organizat ion Details LastModified Time Tobacco Smoking Status Former Smoker Dorothy Cotto ryne, [facility] 10/23/2022 15:20:33 If You Are , What Was Your Level Of Alcohol Consumption Prior To ? Occasional Information not available 10/23/2022 Are You Blind Or Do You Have Difficulty Seeing? No [email or web address] Information not available 04/26/2022 What Is Your Level Of Caffeine Consumption? Moderate [email or web address] Information not available 04/26/2022 How Much Tobacco Do You Chew? None Information not available 10/23/2022 In The 14 Days Before Symptom Onset, Have You Had Close Contact With A Laboratory-confir med COVID-19 While That Case Was Ill? No [email or web address] Information not available 04/26/2022 In The 14 Days Before Symptom Onset, Have You Had Close Contact With A Person Who Is Under Investigation For COVID-19 While That Person Was Ill? No [email or web address] Information not available 04/26/2022 Have You Been To An Area Known To Be High Risk For COVID-19? No [email or web address] Information not available 04/26/2022 Are You Deaf Or Do You Have Serious Difficulty Hearing? No [email or web address] Information not available 04/26/2022 What Type Of Diet Are You Following? REGULAR [email or web address] Information not available 04/26/2022 What Is The Highest Grade Or Level Of School You Have Completed Or The Highest Degree You Have Received? [id number] Information not available 10/23/2022 Do You Use Your Seat Belt Or Car Seat Routinely? Yes [email or web address] Information not available 04/26/2022 Do You Have Smoke And Carbon Monoxide Detectors In Your Home? Yes [email or web address] Information not available 04/26/2022 How Much Tobacco Do You Smoke? No Information not available 10/23/2022 Do You Use Sunscreen Routinely? Yes [email or web address] Information not available 04/26/2022 Has Tobacco Cessation Counseling Been Provided? No Information not available 10/23/2022 Have You Used IV Drugs? No Information not available 10/23/2022 Do You Have Difficulty Walking Or Climbing Stairs? No Information not available 10/23/2022 Sex: Female Functional Status Question Answer Note LastModified by Organizat ion Details LastModified Time Do you use any illicit or recreational drugs? No [email or web address] Information not available 04/26/2022 Do you or have you ever used any other forms of tobacco or nicotine? No Information not available 10/23/2022 What is your level of alcohol consumption? None [email or web address] Information not available 04/26/2022 Are you able to walk independently without assistance or assistive devices? YESWOREST [email or web address] Information not available 04/26/2022 Are you able to care for yourself independently? Yes Information not available 10/23/2022 Do you have difficulty dressing, bathing, grooming, or toileting? No Information not available 10/23/2022 What is your exercise level? Occasional [email or web address] Information not available 04/26/2022 Mental Status Question Answer Note LastModified by Organization D etails LastModified Time Do you feel stressed (tense, restless, nervous, or anxious, or unable to sleep at night)? [id number] [email or web address] Information not available 04/26/2022 Family History Relationship Description Onset Age of this Age Resolved Age Notes LastModified by Organization Details LastModified Time Paternal Grandmother Diabetes mellitus [email or web address] Not available 04/26 12:22:55 Maternal Grandmother Malignant neoplasm of breast [email or web address] Not available 04/26 12:23:03 Maternal Grandmother Malignant neoplasm of brain [email or web address] Not available 2024 09:26:31 Maternal Grandfather Hypertensive disorder [email or web address] Not available 04/26 12:23:27 Medical History Condition Response Allergies (Food, seasonal, environmental ) Y Other N Breast Cancer N Drug/Latex Allergies/Reactions N Blood Transfusion N Dermatologic Disorders N Lung Disease N Defects or Inherited Disease N Breast Problem N Gestational Diabetes N Hematologic disorders N Anesthesia Complications N History of STI N Deep Vein Thrombosis N Polycystic ovary syndrome N Anxiety Disorder Y Autoimmune disease N Arthritis N Infertility N Polyps N Acid Reflux (GERD) N History of abnormal pap N Cancer N Stroke N Varicosities N Neurologic/Epilepsy N Endometriosis N High Cholesterol N Headaches N Fibromyalgia N Kidney Disease N Heart Problems N Kidney or Bladder Problems N Thyroid Problems N GI Problems Y Eating Disorder [...] ICD10 Code Diagnosis IMO Codes Diagnosis Note [id number] Gee Campuzano MD [place] [address] [address] 04/26/2022 11:34:24 04/26/2022 12:15:46 [id number] Maria Fernanda Raman CNM [place] [address] [address] 04/26/2022 11:34:46 04/26/2022 14:55:35 test positive 050007511 Z32.01 Amenorrhea 09461346 N91. 2 Gynecologi c examination 93573804 Z01.419 [id number] MD Chely Yi [address],[place] [address] 05/24/2022 09:22:19 05/24/2022 15:57:46 Routine care 710720357 Z34.91 [id number] MD Chely Yi [address],[place] [address] 05/24/2022 09:22:48 05/24/2022 20:56:23 Uncertain viability of 848121182 O36.80X0 Z3A.12 [id number] MD Chely Yi [address],[place] [address] 06/28/2022 11:46:32 06/28/2022 14:54:54 Dichorionic diamniotic twin 272972338 O30.049 [id number] MD Kadi Yiville [address],[place] [address] 07/26/2022 12:47:43 07/26/2022 13:34:01 Dichorionic diamniotic twin 186666104 O30.049 [id number] MD Chely Yi [address],[place] [address] 08/23/2022 10:24:33 08/23/2022 14:47:04 Dichorionic diamniotic twin 595045865 O30.049 [id number] MD Chely Yi [address],[place] [address] 09/06/2022 11:23:41 09/06/2022 12:42:00 Dichorionic diamniotic twin 517743976 O30.049 [id number] MD Chely Yi [address],[place] [address] 09/20/2022 10:29:39 09/22/2022 10:25:50 Dichorionic diamniotic twin 622037467 O30.049 [id number] Gee Campuzano MD [place] [address],[place] [address] 10/09/2022 14:26:49 10/09/2022 15:19:49 Routine care 659782641 Z34.03 [id number] Gee Campuzano MD [place] [address],[place] [address] 10/23/2022 15:02:16 10/24/2022 15:14:47 Routine care 517592859 Z34.03 [id number] Gee Campuzano MD [place] [address],[place] [address] 11/06/2022 14:20:12 11/06/2022 15:08:41 Routine care 835599063 Z34.03 [id number] Gee Campuzano MD [place] [address],[place] [address] 11/17/2022 12:27:17 11/17/2022 15:43:21 Postoperative care 810173900 Z48.89 This patient is a 22-year-ol d female presents for postop follow-up. She is 1 week postop from a delivery. Her incision is clean dry and intact. She is doing exceptiona lly well. She reports being pain-free 2nd day postop. Her babies are in the ICU with minor respirator y issues. She will follow-up in 3 weeks for routine care. [id number] Gee Campuzano MD [place] [address],[place] [address] 12/14/2022 11:40:17 12/14/2022 12:17:41 state 52148732 Z39.2 this patient is 22-year-ol d female presents for follow-up. She bottle feeding, her baby is doing well, her mood is good. She is going to use a Mirena IUD. She will return for insertion. She has no bleeding. She has follow-up in 2 weeks for Mirena insertion. [id number] KIAH Herrera [place] [address],[place] [address] 01/03/2023 11:08:29 01/03/2023 12:22:20 Contraception care management 040925021 Z30.9 Discussed all control options in great [...] 3-4 months Screening procedure 20126 Z13.9 Vaginitis 14829508 N76.0 suspect yeastvagin itis / STI panel sentvulvar care guidelines discussedR x sent, R/B/A discussedn otify office if symptoms persist Time spent in visit is a total of 30 mins with at least 50% of visit consisting of counseling and review of plan of care. Venereal d isease screening 214792478 Z11.3 [id number] KIAH Herrera [place] [address],[place] [address] 05/14/2023 09:31:32 05/14/2023 12:13:43 Abscess of vulva 38200981 N76.4 cx sent, HSV PCR sentvagini tis panel sentSTI testing declinedvu lvar care guidelines discussedr x sent, r/b/a reviewedRT C if symptoms persist past treatmentc all the office with next period for IUD insertion if desired Time spent in visit is a total of 30 mins with at least 50% of visit consisting of counseling and review of plan of care. Vaginitis 86117388 N76.0 [id number] KIAH Herrera [place] [address],[place] [address] 06/11/2023 15:25:34 06/11/2023 17:11:08 Screening procedure Z13.9 Insertion of intrauterine contraceptive device 98820051 Z30.430 UPT (-), gc/ct/tric h testing sentShe [...] ing.RTC for string check in 4-6 weeks [id number] KIAH Herrera [place] [address],[place] [address] 08/02/2023 15:34:53 08/02/2023 16:24:31 IUD check 575907774 Z30.431 Patient is here for 4-6wk IUD string check.(+) IUD strings noted on exam She denies complicati ons, pain, or unpleasant side effects. Happy with this control method. Wishes to continue. Anxiety 98133402 F41.9 Discussed management optionswou ld like to start sertraline rx sent, r/b/a reviewedco unseling encouraged precaution s discussed (if thoughts of harming self or others occur call 911/seek help immediatel y)med check in 4 weeks Time spent in visit is a total of 25 mins with at least 50% of visit consisting of counseling and review of plan of care. [id number] KIAH Herrera [place] [address],[place] [address] 09/04/2023 17:10:41 09/04/2023 17:34:45 Anxiety 90356516 F41.9 Doing well, has seen some improvemen twould like to increase dose as feels like symptoms could still be better controlled rx sent - r/b/a reviewedco unseling encouraged JERALD [facility] Time spent in visit is a total of 20 mins with at least 50% of visit consisting of counseling and review of plan of care. [id number] Dana Ruiz CHASE [place] [address],[place] [address] 10/29/2023 16:12:32 10/29/2023 17:04:00 Anxiety [id number] F41.9 desires to go back to 50mg dailyrx sent, instructio ns given on decreasing dose from 100 to 50question s answeredco unseling encouraged precaution s reviewed (if ever thoughts of harming self or others call 911/ED immediatel y)pt [facility] Time spent in visit is a total of 20 mins with at least 50% of visit consisting of counseling and review of plan of care. [id number] Dana Ruiz [place] [address],[place] [address] 12/10/2023 10:59:06 12/10/2023 12:44:05 Gynecologic examination [id number] Z01.419 Z11.3 Z11.8 WWEBC - Mirena IUD, [...] copy of today's plan if desired. Anxiety 47783111 F41.9 Doing well at current doserefill s sentr/b/a reviewed, precaution s discussed Venereal d isease screening [id number] Z11.3 [id number] Gee Campuzano MD [place] [address],[place] [address] 07/17/2024 15:01:49 07/17/2024 15:30:18 Vaginal discharge [id number] N89.8 Discussed empirical treatment with metronidaz ole for suspected BV based on reported symptoms and physical exam findings.D iscussed vulvar care guidelines in addition to laundry/sk in irritants to avoid.Enrico mmended boric acid capsules - insert one capsule vaginally at H.S. after period, intercours e, and/or with symptoms.V aginitis panel sent to confirm infection. Urinary symptoms [id number] R39.9 Patient presents with symptoms of UTI. Urine culture sent. Advised to drink clear fluids, Tylenol for pain and take prescribed medication s as instructed . Patient encouraged to follow up within 1 week if not improving. Venereal d isease screening 282030676 Z11.3 Pt requested STI testing.Di scussed the various types of STDs, related symptoms and the potential consequenc es (including effects on fertility) of STD infections . Reviewed ways to limit exposure and prevention techniques . [id number] KIAH Herrera [place] [address],[place] [address] 10/23/2024 09:25:42 10/23/2024 11:54:29 Urinary system finding [id number] R39.9 [id number] Ua done, urine cx sentrx sent for macrobidin crease clear fluids, avoid bladder irritants Venereal d isease screening 155138075 Z11.3 52221 gc/ct/tric h testing sentvagini tis panel sentDiscus sed the various types of STIs, related symptoms and the potential consequenc es (including effects on fertility) of STI infections . Reviewed ways to limit exposure and prevention techniques . Intrauteri ne contraceptive device in situ [id number] Z30.431 [id number] normal appearing IUD strings noted on examquesti [...] Panchal Member ID Guarantor Name 10/23/2024 1 [place] [id number] Tao Oswald [id number] Zaina Oswald 10/23/2024 2 [place] [facility] Zaina Oswald [id number] Zaina Darek Notes Date Note Type Note Provider Name and Address Organization Details Recorded Time 09/04/19 24 text/ht ml 23yopresents for med checkstarted [facility] for anxietyhas seen some improvementless mood swings/anger, does however feel like she is still getting overwhelmed and anxious at timesdenies ever thoughts of harming self or othersno negative SEno issues sleeping/eating/drinkingtwin 10 month old boys - doing well, planning 1 yr bday partner KIAH Herrera [address], [place], [address], [facility] 09/04/2023 17:32:48 10/29/19 24 text/ht ml [...] this month KIAH Herrera [address], [place], [address], [facility] 10/29/2023 16:58:40 12/10/19 24 text/ht ml [...] or others KIAH Herrera [address], [place], [address], [facility] 12/10/2023 12:30:26 07/17/19 25 text/ht ml Patient here with c/o cramping pelvic pain after urination, vaginal odor, millard discharge x 1 dayAlso c/o urinary frequency, urgency, hesitancy.Denies itching, fever, back pain.Patient just ended her period.Requests STI testing d/t new partner. Adelaide michele, [facility] 07/17/2024 15:31:02 10/24/19 25 text/ht ml 24yopresents for evaluation of urinary frequency/urgency, dysuria, vaginal discharge, and STI testingsymptoms started 3 days agonew partner recently and would like STI testing neg flank painsneg n/v/fneg flu-like symptomsneg pelvic pain KIAH Herrera [address], [place], [address], [facility] 10/23/2024 11:47:50 OBGyn Episode Ob Episode Information Episode Created Date Number of Fetuses Patient Bloodtype Patient rh Status Prepregnancy Weight lbs Domestic Partner Domestic Partner Phone Father Name Apartment Leasing Agent Status 05/24/20 22 2 B Positive 163 CLOSED Fetus Data First Name Last Name Admitted to NICU Weight (g) Sex Living Outcome Pediatric Complications Fetus ID Race Codes Race Delivery Type 2551.45 5 M true Prematur e 87357 Primary 2664.85 3 M true Prematur e 70123 Primary Problems Problem Notes MFM 08/28 230 u/s only MFM u/s only 09/25 230MFM Recommendations: Twins - 162mg ASA daily, serial growth u/s, iron supplement if indicated, 36 week testing once weekly. Pt to do testing with MFM, MFM aware. bg,rnpt scheduled [facility] 11/13 145P us and nst Problem Name Start Date End Date Resolution Snomed Code Not e Dichorionic diamniotic twin [id number] [facility] 07/26/22. A SA QD, serial [...] Date Ultra Sound Latest Days Gestation 0 [id number] 05/24/2022 12/04/19 23 0 Pre-carmelina Flowsheet Flowsheet Date 05/24/2022 Zuniga Score Blood [...] Weight in lbs Pre/Post Dialysis Refused Weight 166.478673917991 BP Diastolic BP Location Tested BP Systolic [...] She should start ASA. She will see [facility] for anatomy US, growth USs, and testing. We discussed delivery by 38w and started discussing mode of delivery. Questions answered, support given, FU 4 w. Flowsheet Date 06/28/2022 Zuniga Score Blood Edema Fundus Height Fundus Units Glucose Ketones Leukocytes Nitrite Labor Signs Protein Cervic Dilation Cervic Effacement Cervic Station neg none none trace Type Weight in lbs Pre/Post Dialysis Refused Weight 173.184076433944 BP Diastolic BP Location Tested BP Systolic BP Type 81 126 Fetus Heart Rate Present A 155 B 145 Fetus Movement A No B No Comments Doing fine. Gender reveal th is week (boy/boy). Will get scheduled at [facility] for anatomy/consult. No concerns. Flowsheet Date 07/26/2022 Zuniga Score Blood Edema Fundus Height Fundus Units Glucose Ketones Leukocytes Nitrite Labor Signs Protein Cervic Dilation Cervic Effacement Cervic Station neg none 25 none trace Type Weight in lbs Pre/Post Dialysis Refused Weight 179.789667047265 BP Diastolic BP Location Tested BP Systolic BP Type 80 122 Fetus Heart Rate Present A 150 B 145 Fetus Movement A Yes B Yes Comments Doing well. Feeling FM now. [facility] today- got RS from snow. Precautions discussed. Flowsheet Date 08/23/2022 Zuniga Score Blood Edema Fundus Height Fundus Units Glucose Ketones Leukocytes Nitrite Labor Signs Protein Cervic Dilation Cervic Effacement Cervic Station neg none 32 none trace Type Weight in lbs Pre/Post Dialysis Refused Weight 185.560069614984 BP Diastolic BP Location Tested BP Systolic BP Type 77 116 Fetus Heart Rate Present A 140 B 135 Fetus Movement B Yes Comments Doing very well. Some back p ain. Good FM x2. GCT next. Taking ASA. Grwoth US at [facility]. Flowsheet Date 09/06/2022 Zuniga Score Blood Edema Fundus Height Fundus Units Glucose Ketones Leukocytes Nitrite Labor Signs Protein Cervic Dilation Cervic Effacement Cervic Station neg none 34 none trace Type Weight in lbs Pre/Post Dialysis Refused Weight 188.808630579497 BP Diastolic BP Location Tested BP Systolic [...] Weight in lbs Pre/Post Dialysis Refused Weight 192.096176931873 BP Diastolic BP Location Tested BP Systolic BP Type 77 118 Fetus Heart Rate Present A 160 B 130 Fetus Movement A Yes B Yes Comments Doing well. GCT wnl. Anemia, taking iron. Bck to [facility] next week. Declines Tdap, no reason given, education done, information from [employer] given. CS scheduled for 38w. Flowsheet Date 10/09/2022 Zuniga Score Blood Edema Fundus Height Fundus Units Glucose Ketones Leukocytes Nitrite Labor Signs Protein Cervic Dilation Cervic Effacement Cervic Station Type Weight in lbs Pre/Post Dialysis Refused Weight 201.440006333192 BP Diastolic BP Location Tested BP Systolic [...] Weight in lbs Pre/Post Dialysis Refused Weight 204.466213787240 BP Diastolic BP Location Tested BP Systolic [...] Weight in lbs Pre/Post Dialysis Refused Weight 207.567950057480 BP Diastolic BP Location Tested BP Systolic [...] Weight in lbs Pre/Post Dialysis Refused Weight 176.892437298175 BP Diastolic BP Location Tested BP Systolic [...] Estim ated Date of Delivery false Thalassemia (Mohawk, Cameroonian, Mediterranean, Or Background): MCV < 80 false Neural Tube Defect (Meningomyelocele, Spina Bifi da, Or Anencephaly) false Congenital Heart Defect false Down Syndrome false Kana-Sachs (eg, Zoroastrianism, Cajun, Iraqi-Fenelton) f alse Jenny Disease false Sickle Cell Disease Or Trait () false Hemophilia Or Other Blood Disorders false Muscular Dystrophy false Cystic Fibrosis false Sanborn's Chorea false Intellectual Disability/Autism false If Yes, [...]
--- OUTSIDE RECORDS SUMMARY | 2025-05-07 13:44 | XMS_ITS | Encounter Summary ---
Author Organization [facility] Address [address] [place] [address] Care Team Providers Care Rehab/Pre Vocational Counselor Name Role Phone Sandi Ndiaye [facility] Primary Care Provider [phone] Jerome Waters MD Primary Care Provider [phone] Encounter Details Date Type Department Care Team (Late st Contact Info) Description 02/18/2024 Physiqt Message Enc [facility] Family Medicine [address] [address] Sandi Ndiaye [address] [address] Over eating Social History Tobacco Use Types [...] on file Legal Sex Female 11:22 PM DIRECTOR STRATEGY Gender Identity Not on file Sexual Orientation [...] Depression Total Score: 13 021 10:54 AM DIRECTOR STRATEGY documented as of this encounter Care Teams Rehab/Pre Vocational Counselor Relationship Specialty Start Date End Date [facility]CP - General NURSE PRACTITIONER 03/05/20 02/23/24 Jerome Waters MD [address] [facility] [place] [address] PCP - General FAMILY PRACTICE 02/24/24 02/28/24 documented as of this encounter
--- OUTSIDE RECORDS SUMMARY | 2025-05-07 13:44 | XMS_ITS | Clinical Summary ---
Author Organization [facility] Address [address] [place] [address] Care Team Providers Care Grouter Helper Name Role Phone Unavailable Primary Care Provider Unavailabl e Source Comments [facility],non-owned Affiliates and Associated Physician Practices is amultiple site organization consisting of ambulatory clinics and hospital sitesin [place], [place], [place] and [place]. This disclosure is being madepursuant to the Care Everywhere program and may not contain all information available regarding this patient. Last updated 18.[facility] [employer] Allergies No known active allergies Medications * [...] on file Legal Sex Female 5:41 AM ASSESSMENT EXPERT Gender Identity Not on file Sexual Orientation Not on file Last Filed Vital Signs Vital Sign Reading Time Taken Comments Blood Pressure 139/99 11/06/2022 2:34 PM CDT Pulse 87 11/06/2022 2:34 PM CDT Temperature 36.7 C (98.1 F) 02/24/2019 3:44 PM CDT Respiratory Rate 20 02/24/2019 3:44 PM CDT Oxygen Saturation 99% 07/26/2022 2:34 PM ASSESSMENT EXPERT Inhaled Oxygen Concentration - - Weight 78.9 kg (174 lb) 07/26/2022 2:34 PM ASSESSMENT EXPERT Height 162.6 cm (5' 4) 07/26/2022 2:34 PM ASSESSMENT EXPERT Body Mass Index 29.87 07/26/2022 2:34 PM ASSESSMENT EXPERT Plan of Treatment Health Maintenance Due Date [...] AM CDT) No Yenni Arredondo MA Insurance [facility] [place] [id number] MARCIA MARCIA
--- OUTSIDE RECORDS SUMMARY | 2025-05-07 13:44 | XMS_ITS | Encounter Summary ---
Author Organization [facility] Address [address] [place] [address] Care Team Providers Care Independent Jeweler Name Role Phone Sandi Ndiaye [facility] Primary Care Provider [phone] Jerome Waters MD Primary Care Provider [phone] Encounter Details Date Type Department Care Team (Late st Contact Info) Description 03/23/2021 [employer] Divt Message Enc [facility] Medical [facility] Family Medicine [address] [address] Sandi Ndiaye [address] [address] RE:meds Social History Tobacco Use Types Packs/Day [...] on file Legal Sex Female 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 [address] PCP - General FAMILY PRACTICE 02/24/24 02/28/24 documented as of this encounter
--- OUTSIDE RECORDS SUMMARY | 2025-05-07 13:44 | XMS_ITS | Encounter Summary ---
Author Organization [facility] Address [address] [place] [address] Care Team Providers Care President And Ceo Name Role Phone Sandi Ndiaye [facility] Primary Care Provider [phone] Jerome Waters MD Primary Care Provider [phone] Encounter Details Date Type Department Care Team (Late st Contact Info) Description 11/27/2023 Edlogicst Message Enc [facility] Medical Group Family Medicine [address] [address] Sandi Ndiaye [address] [address] Children Social History Tobacco Use Types Packs/Day [...] on file Legal Sex Female 11:22 PM DESIGN ENGINEER PRODUCTS Gender Identity Not on file Sexual Orientation Not on file documented as of this encounter Plan of Treatment Not on file documented as of this encounter Visit Diagnoses Not on filedocumented in this encounter Additional Health Concerns Assessment Noted Time PHQ-9 Depression Total Score: 13 021 10:54 AM DESIGN ENGINEER PRODUCTS documented as of this encounter Care Teams President And Ceo Relationship Specialty Start Date End Date [facility] Ndi[facility] PCP - General NURSE PRACTITIONER 03/05/20 02/23/24 Jerome Waters MD [address] [facility] [place] [id number] PCP - General FAMILY PRACTICE 02/24/24 02/28/24 documented as of this encounter
--- OUTSIDE RECORDS SUMMARY | 2025-05-07 13:44 | XMS_ITS | Encounter Summary ---
Author Organization [facility] Address [address] [place] [address] Care Team Providers Care Process Coach Name Role Phone Sandi Ndiaye [facility] Primary Care Provider [phone] Jerome Waters MD Primary Care Provider [phone] Encounter Details Date Type Department Care Team (Late st Contact Info) Description 03/15/2021 KuponGidt Message Enc [facility] Family Medicine [address] [address] Sandi Ndiaye [address] [address] RE: Question Social History Tobacco Use Types [...] on file Legal Sex Female 11:22 PM 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 [place] [address] PCP - General FAMILY PRACTICE 02/24/24 02/28/24 documented as of this encounter
--- OUTSIDE RECORDS SUMMARY | 2025-05-07 13:44 | XMS_ITS | Encounter Summary ---
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 [address] PCP - General FAMILY PRACTICE 02/24/24 02/28/24 documented as of this encounter
--- OUTSIDE RECORDS SUMMARY | 2025-05-07 13:44 | XMS_ITS | Encounter Summary ---
Author Organization [facility] Address [address] [place] [address] Care Team Providers Care Lighting Fixture Installer Name Role Phone Sandi Ndiaye [facility] Primary Care Provider +[phone] Jerome Waters MD Primary Care Provider [phone] Encounter Details Date Type Department Care Team (Late st Contact Info) Description 05/13/2020 [employer] Message Enc [facility] Medical Group Family Medicine [address] [address] Sandi Ndiaye [address] [address] Eczema? 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 [place] [address] PCP - General FAMILY PRACTICE 02/24/24 02/28/24 documented as of this encounter
--- OUTSIDE RECORDS SUMMARY | 2025-05-07 13:44 | XMS_ITS | Encounter Summary ---
Author Organization [facility] Address [address] [place] [address] Care Team Providers Care Brazing Machine Operator Name Role Phone Sandi Ndiaye [facility] Primary Care Provider +[phone] Jerome Waters MD Primary Care Provider [phone] Encounter Details Date Type Department Care Team (Late st Contact Info) Description 11/02/2021 FireHostt Message Enc [facility] Medical Group Family Medicine [address] [address] Sandi Ndiaye [address] [address] Episode Social History Tobacco Use Types Packs/Day [...] on file Legal Sex Female 11:22 PM ADVICE NURSE Gender Identity Not on file Sexual Orientation [...] Depression Total Score: 13 021 10:54 AM ADVICE NURSE documented as of this encounter Care Teams Brazing Machine Operator Relationship Specialty Start Date End Date Sandi Ndiaye [facility] PCP - General NURSE PRACTITIONER 03/05/20 02/23/24 Jerome Waters MD [address] [facility] [place] [address] PCP - General FAMILY PRACTICE 02/24/24 02/28/24 documented as of this encounter
--- OUTSIDE RECORDS SUMMARY | 2025-05-07 13:44 | XMS_ITS | Clinical Summary ---
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
--- OUTSIDE RECORDS SUMMARY | 2025-05-07 13:44 | XMS_ITS | Encounter Summary ---
Author Organization [facility] Address [address] [place] [address] Care Team Providers Care Eyelet Row Marker Name Role Phone Sandi Ndiaye [facility] Primary Care Provider [phone] Jerome Waters MD Primary Care Provider [phone] Encounter Details Date Type Department Care Team (Late st Contact Info) Description 10/30/2023 [employer] Mobilet Message Enc [facility] Medical Group Family Medicine [address] [address] Sandi Ndiaye [address] [address] Appointment Social History Tobacco Use Types Packs/Day [...] on file Legal Sex Female 11:22 PM KAIAWHINA Gender Identity Not on file Sexual Orientation [...] Depression Total Score: 13 021 10:54 AM KAIAWHINA documented as of this encounter Care Teams Eyelet Row Marker Relationship Specialty Start Date End Date [facility] PCP - General NURSE PRACTITIONER 03/05/20 02/23/24 Jerome Waters MD [address] [place] [address]. [place] [address] PCP - General FAMILY PRACTICE 02/24/24 02/28/24 documented as of this encounter
--- OUTSIDE RECORDS SUMMARY | 2025-05-07 13:44 | XMS_ITS | Clinical Summary ---
Author Organization [facility] Address [address] [place] [address] Care Team Providers Care Telecommunication Systems Designer Name Role Phone Unavailable Primary Care [...] on file Legal Sex Female 11:22 PM CIGAR BANDER Gender Identity Not on file Sexual Orientation [...] 01/02/2007, 04/29/2003, Additional history exists PHQ-2 (Physician Fromberg) 06/25/2024 12/06/2023 COVID-19 Vaccine ( season) 2025 Influenza Adult (#1) 2025 05/01/2012, 05/01/2012, 06/07/2010, Additional history exists Hepatitis B Vaccines Completed 03/26/2002, 03/26/2002, 03/26/2002, Additional history exists HPV Vaccines Completed 10/22/2014, 01/27/2014 Hepatitis A Vaccines Completed 03/02/2017, 03/02/2017, 01/27/2014, Additional history exists Meningococcal Vaccine Completed 04/06/2020 , 01/27/2014, 01/27/2014 Pneumococcal Vaccine: Pediatrics (0 to 5 Years) and At-Risk Patients (6 to 49 Years) Aged Out No longer eligible based on patient's age to complete this topic RSV Immunizations Under 20 Months Aged Out No longer eligible based on patient's age to complete this topic Insurance [facility]
[2025-05-07 20:05] LABS: Trichomonas Vag PCR NOT DETECTED (NOT DETECTE)
== END 2025-05-07 13:38 | disposition home or self-care (01) ==
PROVIDERS: Emergency Provider Nurse Practitioner; PCP Emergency Medicine
DX: A74.9 Chlamydial infection, unspecified (principal); N30.01 Acute cystitis with hematuria
CPT/HCPCS: 81003; 87086; 87491; 87591; 87661; 96372; 99213; G0463; J0696; J2003